=== PATIENT | female | born 1945 | race American Indian/Alaskan Native ===

== ENCOUNTER 2019-08-10 04:06 | Emergency (ER) | payer MEDICARE ==
[~2019-08-10] VITALS: Ht 167.6 cm; Wt 84.0 kg
[~2019-08-10 04:06] MED LIST: LANS30CA56 PO; METO-395 PO; ROSU10TA2 PO
[2019-08-10 04:38] LABS: CLARITY,URINE CLOUDY (Clear); COLOR,URINE YELLOW (Yellow); GLUCOSE, URINE NEGATIVE (Neg); KETONES,URINE NEGATIVE (Neg); LEUKOCYTE ESTERASE ,URINE MODERATE (Neg); NITRITES, URINE POSITIVE (Neg); OCCULT BLOOD,URINE LARGE (Neg); PH,URINE 5.5 (4.8-8.0); PROTEIN,URINE 100 mg/dl (Neg); UROBILINOGEN,URINE 0.2 E.U/dL (0.2-1.0)
[2019-08-10 04:44] LABS: UA COLLECTION TYPE VOIDED
[2019-08-10 04:45] LABS: BACTERIA,URINE FEW /HPF (Neg); SQUAMOUS EPITHELIAL CELL,UR FEW /LPF (FEW); WBC CLUMPS,URINE FEW /HPF (NEGATIVE); WBC,URINE 50-100 /HPF (0-4)
[2019-08-10] MEDS ORDERED: nitrofuran/nitrofuran macrocrysal 100 MG capsule PO ONE (05:10)
[2019-08-10] MEDS ORDERED: phenazopyridine 100mg tablet PO ONE (05:10)
[2019-08-10] MEDS ORDERED: NITR100C6 PO (05:22)
[2019-08-10] MEDS ORDERED: PHEN-716 PO (05:22)
[2019-08-10 05:27] VITALS: BP 138/89
== END 2019-08-10 05:30 | disposition home or self-care (01) ==
LOC: ER 04:07
DX: N39.0 Urinary tract infection, site not specified (principal); I48.91 Unspecified atrial fibrillation; E78.00 Pure hypercholesterolemia, unspecified; K21.9 Gastro-esophageal reflux disease without esophagitis; I50.9 Heart failure, unspecified; Z98.890 Other specified postprocedural states; Z79.899 Other long term (current) drug therapy
CPT/HCPCS: 81001; 87077; 87088; 87186; 99283

== ENCOUNTER 2020-04-27 17:46 | Emergency (ER) | payer MEDICARE ==
[~2020-04-27] VITALS: Ht 167.6 cm; Wt 79.5 kg
[~2020-04-27 17:46] MED LIST changes: +NITR100C6 PO; +PHEN-716 PO
[2020-04-27 17:55] VITALS: BP 124/78
[2020-04-27] MEDS ORDERED: DOCU100C40 PO (19:06)
[2020-04-27] MEDS ORDERED: HYDR30CR79 TOP (19:06)
[2020-04-27] MEDS ORDERED: POLY17PO10 PO (19:06)
== END 2020-04-27 19:24 | disposition home or self-care (01) ==
LOC: ER 17:48
DX: K64.4 Residual hemorrhoidal skin tags (principal); I48.91 Unspecified atrial fibrillation; E78.00 Pure hypercholesterolemia, unspecified; K21.9 Gastro-esophageal reflux disease without esophagitis; Z98.890 Other specified postprocedural states; Z72.89 Other problems related to lifestyle; Z79.899 Other long term (current) drug therapy
CPT/HCPCS: 99282

== ENCOUNTER 2020-05-30 18:46 | Emergency (ER) | payer MEDICARE ==
[~2020-05-30] VITALS: Ht 167.6 cm; Wt 84.1 kg
[~2020-05-30 18:46] MED LIST changes: +DOCU100C40 PO; +HYDR30CR79 TOP
[2020-05-30 19:12] LABS: COLOR,URINE YELLOW (Yellow); GLUCOSE, URINE NEGATIVE (Neg); KETONES,URINE NEGATIVE (Neg); LEUKOCYTE ESTERASE ,URINE NEGATIVE (Neg); NITRITES, URINE POSITIVE (Neg); OCCULT BLOOD,URINE SMALL (Neg); PROTEIN,URINE 30 mg/dl (Neg); UROBILINOGEN,URINE 0.2 E.U/dL (0.2-1.0)
[2020-05-30 19:19] LABS: UA COLLECTION TYPE CLN CATCH MIDSTREAM
[2020-05-30 19:20] LABS: BACTERIA,URINE 1+ /HPF (Neg); CLARITY,URINE SLIGHTLY CLOUDY (Clear); RBC,URINE 0-2 /HPF (0-2); SQUAMOUS EPITHELIAL CELL,UR FEW /LPF (FEW)
[2020-05-30] MEDS ORDERED: normal saline 1000ML IV soln IVB ONE (19:25)
[2020-05-30] MEDS ORDERED: ondansetron/PF 4mg/2ml inj IV ONE (19:25)
[2020-05-30 19:39] LABS: BASOPHILS % (AUTO) 0.5 % (0-1); EOSINOPHILS % (AUTO) 0.4 % (0-6); HEMOGLOBIN 14.8 g/dl (12.0-16.0); LYMPHOCYTES # (AUTO) 1.9 X10'3 (1.1-4.8); LYMPHOCYTES % (AUTO) 20.2 % (21-51); MEAN CORPUSCULAR HEMOGLOBIN 31.1 PG (27.0-31.0); MEAN CORPUSCULAR HGB CONC 33.6 g/dL (33.0-36.5); MEAN CORPUSCULAR VOLUME 92.6 FL (78-98); MEAN PLATELET VOLUME 8.7 FL (7.4-10.4); MONOCYTES # (AUTO) 0.8 X10'3 (0-0.9); MONOCYTES % (AUTO) 8.8 % (2-12); NEUTROPHILS # (AUTO) 6.6 X10'3 (1.8-7.7); NEUTROPHILS % (AUTO) 70.1 % (42-75); PLATELET COUNT 277 X10'3 (140-440); RED BLOOD COUNT 4.75 X10'6 (4.20-5.60); RED CELL DISTRIBUTION WIDTH 13.1 % (11.5-14.5); WHITE BLOOD COUNT 9.4 X10'3 (4.5-11.0)
[2020-05-30 20:03] LABS: ALANINE AMINOTRANSFERASE 27 U/L (12-78); ALBUMIN 4.4 G/DL (3.4-5.0); ALBUMIN/GLOBULIN RATIO 0.9 (1.1-1.5); ALKALINE PHOSPHATASE 112 IU/L (46-116); ANION GAP 8 (8-16); ASPARTATE AMINO TRANSFERASE 23 U/L (10-37); BILIRUBIN,TOTAL 0.7 MG/DL (0.1-1.0); BLOOD UREA NITROGEN 16 MG/DL (7-18); BUN/CREATININE RATIO 14.8 (6.6-38.0); CALCIUM 10.2 MG/DL (8.5-10.1); CHLORIDE 104 MMOL/L (99-107); CREATININE 1.08 MG/DL (0.40-0.90); GLUCOSE 161 MG/DL (70-104); LIPASE 106 U/L (73-393); POTASSIUM 4.4 MMOL/L (3.5-5.1); SODIUM 140 MMOL/L (135-145); TOTAL CARBON DIOXIDE 27.6 MMOL/L (24-32); TOTAL PROTEIN 9.1 G/DL (6.4-8.2); eGFR 50 ML/MIN
[2020-05-30] MEDS ORDERED: CEPH250T PO (20:12)
[2020-05-30] MEDS ORDERED: ONDA4TAB6 PO (20:12)
[2020-05-30 20:34] VITALS: BP 149/102
[2020-05-31] MEDS ORDERED: CHOL500050 PO (11:24)
[2020-05-31] MEDS ORDERED: OMEP-50 PO (11:24)
[2020-05-31] MEDS ORDERED: METO-384 PO (11:24)
[2020-05-31] MEDS ORDERED: RIVA20TA PO (11:24)
[2020-05-31] MEDS ORDERED: ASPI-611 PO (11:24)
[2020-05-31] MEDS ORDERED: ROSU10TA28 PO (11:24)
[2020-05-31] MEDS ORDERED: LORA-660 PO (11:24)
== END 2020-05-30 20:36 | disposition home or self-care (01) ==
LOC: ER 18:48
DX: N39.0 Urinary tract infection, site not specified (principal); R10.32 Left lower quadrant pain; I48.91 Unspecified atrial fibrillation; R19.7 Diarrhea, unspecified; E78.00 Pure hypercholesterolemia, unspecified; K21.9 Gastro-esophageal reflux disease without esophagitis; F17.200 Nicotine dependence, unspecified, uncomplicated; Z90.710 Acquired absence of both cervix and uterus; Z98.890 Other specified postprocedural states; Z72.89 Other problems related to lifestyle; Z79.899 Other long term (current) drug therapy
CPT/HCPCS: 36415; 74176; 80053; 81001; 83690; 85025; 87077; 87088; 87186; 96361; 96374; 99284; J2405; J7030

== ENCOUNTER 2020-05-31 05:34 | Inpatient (IN) | payer MEDICARE ==
[~2020-05-31] VITALS: Ht 167.6 cm; Wt 84.1 kg
[~2020-05-31 05:34] MED LIST changes: +CEPH250T PO; +ONDA4TAB6 PO
[2020-05-31] MEDS ORDERED: normal saline 1000ML IV soln IVB ONE (06:05)
[2020-05-31] MEDS ORDERED: ondansetron/PF 4mg/2ml inj IV ONE (06:05)
[2020-05-31] MEDS: diatr meglu/diatrizoate 30ml oral sol.-(3 dose) bottle PO SCH ×3 (06:47→08:42)
[2020-05-31 06:50] LABS: BASOPHILS % (AUTO) 0.3 % (0-1); EOSINOPHILS % (AUTO) 0.2 % (0-6); HEMATOCRIT 43.5 % (35.0-45.0); HEMOGLOBIN 14.6 g/dl (12.0-16.0); LYMPHOCYTES # (AUTO) 0.9 X10'3 (1.1-4.8); LYMPHOCYTES % (AUTO) 10.4 % (21-51); MEAN CORPUSCULAR HEMOGLOBIN 30.6 PG (27.0-31.0); MEAN CORPUSCULAR HGB CONC 33.5 g/dL (33.0-36.5); MEAN CORPUSCULAR VOLUME 91.3 FL (78-98); MEAN PLATELET VOLUME 8.8 FL (7.4-10.4); MONOCYTES # (AUTO) 0.7 X10'3 (0-0.9); MONOCYTES % (AUTO) 8.1 % (2-12); NEUTROPHILS # (AUTO) 7.1 X10'3 (1.8-7.7); PLATELET COUNT 259 X10'3 (140-440); RED BLOOD COUNT 4.76 X10'6 (4.20-5.60); RED CELL DISTRIBUTION WIDTH 12.9 % (11.5-14.5); WHITE BLOOD COUNT 8.7 X10'3 (4.5-11.0)
[2020-05-31 06:58] LABS: ANION GAP 12 (8-16); BLOOD UREA NITROGEN 17 MG/DL (7-18); BUN/CREATININE RATIO 17.9 (6.6-38.0); CHLORIDE 102 MMOL/L (99-107); CREATININE 0.95 MG/DL (0.40-0.90); GLUCOSE 197 MG/DL (70-104); POTASSIUM 3.8 MMOL/L (3.5-5.1); SODIUM 141 MMOL/L (135-145); TOTAL CARBON DIOXIDE 26.6 MMOL/L (24-32)
[2020-05-31 06:59] LABS: ALANINE AMINOTRANSFERASE 25 U/L (12-78); ALBUMIN/GLOBULIN RATIO 0.9 (1.1-1.5); ALKALINE PHOSPHATASE 103 IU/L (46-116); ASPARTATE AMINO TRANSFERASE 18 U/L (10-37); CALCIUM 10.1 MG/DL (8.5-10.1); LIPASE 103 U/L (73-393); TOTAL PROTEIN 8.5 G/DL (6.4-8.2); eGFR 58 ML/MIN
[2020-05-31] MEDS ORDERED: acetaminophen 325mg tablet PO PRN ×2 (10:00)
[2020-05-31] MEDS ORDERED: acetaminophen 650mg rectal suppository RC PRN (10:00)
[2020-05-31] MEDS ORDERED: magnesium Cl slow-release 64mg tablet PO PRN (10:00)
[2020-05-31] MEDS ORDERED: metoclopramide 5 mg/ml inj IV PRN (10:00)
[2020-05-31] MEDS ORDERED: potassium CL 10mEq/100ml bag 100 ML IV PRN (10:00)
[2020-05-31] MEDS ORDERED: mag hydrox/Alum hydrox/simeth 30ml oral suspension PO PRN (10:00)
[2020-05-31] MEDS ORDERED: magnesium 4gm in 100ml NS 100 ML IV PRN (10:00)
[2020-05-31] MEDS ORDERED: magnesium hydroxide 30ml (MOM) UD suspension PO PRN (10:00)
[2020-05-31] MEDS ORDERED: bisacodyl 10mg suppository rectal RC PRN (10:00)
[2020-05-31] MEDS ORDERED: magnesium 2GM in 50ml NS 50 ML IV PRN (10:00)
[2020-05-31] MEDS ORDERED: potassium Cl 20 mEq SR tablet PO PRN ×2 (10:00)
[2020-05-31] MEDS: normal saline 1000ml 1,000 ML IV SCH ×3 (11:13→22:44)
[2020-05-31] MEDS ORDERED: ROSU10TA28 PO (11:24)
[2020-05-31] MEDS ORDERED: ASPI-611 PO (11:24)
[2020-05-31] MEDS ORDERED: METO-384 PO (11:24)
[2020-05-31] MEDS ORDERED: OMEP-50 PO (11:24)
[2020-05-31] MEDS ORDERED: CHOL500050 PO (11:24)
[2020-05-31] MEDS ORDERED: RIVA20TA PO (11:24)
[2020-05-31] MEDS ORDERED: LORA-660 PO (11:24)
[2020-05-31 11:30] VITALS: BP 113/80
[2020-05-31 11:31] LABS: PARTIAL THROMBOPLASTIN TIME 29 SECONDS (22-32)
--- NOTE | 2020-05-31 11:32 | NUR ---
RECEIVED REPORT. AWAITING PATIENT ARRIVAL TO ROOM 350A.
--- NOTE | 2020-05-31 11:54 | NUR ---
RECEIVED PATIENT TO ROOM 350A VIA GURNEY ACCOMPANIED BY LOYDA MOJICA. PATIENT IS ALERT AND ORIENTED AND C/O NAUSEA. PATIENT ABLE TO TRANSFER TO BED WITH MIN ASSIST. ORIENTED PATIENT TO ROOM AND CALL LIGHT. CALL LIGHT PLACED WITHIN PATIENT'S REACH. BED IS LOW AND LOCKED. PATIENT'S BELONGINGS WHICH WAS A PURSE IS PLACED AT PATIENT'S BEDSIDE TABLE. NG WAS NOT PLACED IN ER. WILL PLACE ORDERED.
[2020-05-31] MEDS: ondansetron/PF 4mg/2ml inj IV PRN (12:15)
--- NOTE | 2020-05-31 13:37 | NUR ---
PATIENT UNABLE TO TOLERATED NG PLACEMENT AT THIS TIME. ATTEMPTED X2. PATIENT AGREEABLE TO ANOTHER ATTEMPT AT A LATER TIME. DR TURNER AWARE. PATIENT APPEARS TO BE RESTING COMFORTABLY AT THIS TIME WITH EYES CLOSED AND RESPIRATIONS EVEN AND UNLABORED. WILL CONTINUE TO MONITOR.
[2020-05-31] MEDS: pantoprazole 40 MG vial IV SCH (14:02)
--- NOTE | 2020-05-31 16:06 | NUR ---
Patient refusing reattempt of NG placement at this time. She states she "might" be agreeable at diff time. Will continue to monitor.
--- NOTE | 2020-05-31 18:02 | NUR ---
16 INDONESIAN NG INSERTED BY LOYDA HOUGH IN RIGHT NARES, SECURED. 500ML BROWN DRAINAGE IN CANISTER. DR. DAWN NOTIFIED.
--- NOTE | 2020-05-31 18:10 | NUR ---
Patient in room [facility] 350. I have received report from Jasmeet SCALES and had the opportunity to ask questions and assume patient care.
--- NOTE | 2020-05-31 18:18 | NUR ---
Problems reprioritized. Patient report given, questions answered & plan of care reviewed with LOYDA ALVAREZ.
[2020-05-31] MEDS: Chloraseptic (Phenol) Spray 177ml MM PRN ×2 (19:16→22:40)
[2020-05-31 19:39] VITALS: BP 122/85
--- NOTE | 2020-05-31 19:58 | NUR ---
pATIENT REQUESTeD CHlOROSEPTIC SPRAY AT CHANGE OF SHIFT. nOW HAS PRN ORDER FOR THROAT HURTING SINCE ng TUBE. Pt. asking "what are we doing for her UTI"? Pt. came it our ER on 05/30 with abd pain. Patient diagnosed with UTI and sent home with prescription for keflex 250 PO q6h. Patient did not fill. Pt. now here again with abd pain and diagnoses of SBO. Called MD about the UA and positive gram rods. New order for rocephin 1 gm iv now, and then to follow up tomorrow with MD. Addendum: 05/31/20 at 2002 by Sana Camacho RN It is GRAM NEGATIVE RODS, not positive. aware.
[2020-05-31] MEDS: K and/or MAG REPLACEMENT MC SCH (20:00)
[2020-05-31] MEDS ORDERED: CefTRIAXone/D5W-Rocephin 1gm 50 ML IV ONE (20:05)
[2020-05-31] MEDS ORDERED: temazepam 15mg capsule PO PRN (21:00)
[2020-05-31] MEDS ORDERED: diatr meglu/diatrizoate 30ml oral sol.-(3 dose) bottle PO SCH (21:00)
[2020-05-31] MEDS: HYDROmorphone inj. 0.5 MG/0.5 ML DISP.SYRIN IV PRN (22:49)
[2020-06-01] VITALS (20 sets, daily range): BP systolic 102–166; BP diastolic 52–110
[2020-06-01] MEDS: Chloraseptic (Phenol) Spray 177ml MM PRN ×2 (02:28→07:40)
[2020-06-01 05:26] LABS: BASOPHILS % (AUTO) 0.3 % (0-1); EOSINOPHILS % (AUTO) 0.3 % (0-6); HEMATOCRIT 37.9 % (35.0-45.0); HEMOGLOBIN 12.8 g/dl (12.0-16.0); LYMPHOCYTES # (AUTO) 1.5 X10'3 (1.1-4.8); LYMPHOCYTES % (AUTO) 27.6 % (21-51); MEAN CORPUSCULAR HEMOGLOBIN 31.2 PG (27.0-31.0); MEAN CORPUSCULAR HGB CONC 33.9 g/dL (33.0-36.5); MEAN CORPUSCULAR VOLUME 92.1 FL (78-98); MEAN PLATELET VOLUME 8.6 FL (7.4-10.4); MONOCYTES % (AUTO) 18.4 % (2-12); NEUTROPHILS # (AUTO) 2.9 X10'3 (1.8-7.7); NEUTROPHILS % (AUTO) 53.4 % (42-75); PLATELET COUNT 213 X10'3 (140-440); RED BLOOD COUNT 4.12 X10'6 (4.20-5.60); RED CELL DISTRIBUTION WIDTH 13.2 % (11.5-14.5); WHITE BLOOD COUNT 5.4 X10'3 (4.5-11.0)
[2020-06-01 05:43] LABS: ALANINE AMINOTRANSFERASE 17 U/L (12-78); ALBUMIN 3.4 G/DL (3.4-5.0); ALBUMIN/GLOBULIN RATIO 0.8 (1.1-1.5); ALKALINE PHOSPHATASE 74 IU/L (46-116); ANION GAP 10 (8-16); ASPARTATE AMINO TRANSFERASE 15 U/L (10-37); BILIRUBIN,TOTAL 0.8 MG/DL (0.1-1.0); BLOOD UREA NITROGEN 18 MG/DL (7-18); CALCIUM 9.2 MG/DL (8.5-10.1); CHLORIDE 104 MMOL/L (99-107); CREATININE 0.82 MG/DL (0.40-0.90); GLUCOSE 116 MG/DL (70-104); MAGNESIUM 1.7 MG/DL (1.5-2.4); SODIUM 141 MMOL/L (135-145); TOTAL CARBON DIOXIDE 26.6 MMOL/L (24-32); TOTAL PROTEIN 7.5 G/DL (6.4-8.2); eGFR 68 ML/MIN
[2020-06-01] MEDS: potassium CL 10mEq/100ml bag 100 ML IV PRN ×6 (05:58→22:25)
--- NOTE | 2020-06-01 06:55 | NUR ---
Patient in room [facility] 350. I have received report from Sana SCALES and had the opportunity to ask questions and assume patient care.
--- NOTE | 2020-06-01 06:59 | NUR ---
Problems reprioritized. Patient report given, questions answered & plan of care reviewed with Rafi SCALES.
[2020-06-01] MEDS: pantoprazole 40 MG vial IV SCH (07:40)
[2020-06-01 07:44] LABS: PLATELET ESTIMATE NORMAL; TOTAL CELLS COUNTED 100
[2020-06-01] MEDS: K and/or MAG REPLACEMENT MC SCH ×2 (08:00→20:00)
[2020-06-01] MEDS: normal saline 1000ml 1,000 ML IV SCH (09:40)
[2020-06-01] MEDS: HYDROmorphone inj. 0.5 MG/0.5 ML DISP.SYRIN IV PRN (13:09)
[2020-06-01] MEDS ORDERED: famotidine/PF 10 mg/ml inj IV ONE (16:00)
--- NOTE | 2020-06-01 16:26 | NUR ---
Patient just left the room, went to OR
[2020-06-01] MEDS ORDERED: sevoflurane 250ml liquid IH ONE (16:34)
[2020-06-01] MEDS ORDERED: midazolam 2 mg/2 ml injection ONE (16:34)
--- NOTE | 2020-06-01 16:34 | NUR ---
Patient's new IVF order NS with 20 mEq KCL was not available to start. The IVF just delivered and patient already in the OR at this time
[2020-06-01] MEDS ORDERED: propofol inj 20 ML IV ONE (16:35)
[2020-06-01] MEDS ORDERED: fentaNYL /PF 50mcg/ml 5ml ampule ONE (16:35)
[2020-06-01] MEDS ORDERED: rocuronium 10mg/ml inj IV ONE (16:35)
[2020-06-01] MEDS ORDERED: ceFOXitin 2GM-NS 50mL ADDVANT. 50 ML IV ONE (17:05)
[2020-06-01] MEDS ORDERED: BUPIVAcaine/PF 2.5mg/ml (0.25%) 10ml vial ONE (17:22)
[2020-06-01] MEDS ORDERED: BUPIVAcaine/PF 2.5 mg/ml (0.25%) 30ml vial ONE (17:22)
[2020-06-01] MEDS ORDERED: sugammadex 200mg/2ml injection IV ONE (17:23)
[2020-06-01] MEDS ORDERED: BUPIVACAINE liposomal/PF 13.3 MG/ML vial IM ONE (17:23)
--- NOTE | 2020-06-01 17:46 | NUR ---
RECEIVED FROM OR VIA BED ACCOMPANIED BY ANESTHESIOLOGIST DR MAN, REPORT GIVEN. 18 GAUGE PIV L WRIST PATENT AND RUNNING LR AT 100 ML/HR. 20 GAUGE PIV SL L AC. PT DROWSY BUT AWAKENS WITH NO COMPLAINT OF PAIN. LG ISLAND DRESSING MIDLINE ABD WITH SCANT SS DRAINAGE NOTED. F/C DRAINING CLEAR YELLOW FLUID. N/G TO R NARES TO LOW INTERMITTENT SUCTION. SKIN PINK AND WARM, ABD SOFT, GOOD CAP REFILL, RESTING COMFORTABLY.
[2020-06-01] MEDS ORDERED: hydrALAZINE 20mg/ml inj. IV PRN (17:55)
[2020-06-01] MEDS ORDERED: ondansetron/PF 4mg/2ml inj IV PRN (17:55)
[2020-06-01] MEDS ORDERED: morphine 2 MG/ML inj. syringe IV PRN (17:55)
[2020-06-01] MEDS ORDERED: meperidine/PF 25mg/ml syringe IV PRN ×2 (17:55)
[2020-06-01] MEDS ORDERED: ringers solution, lacted 1,000 ML IV SCH (17:55)
--- NOTE | 2020-06-01 17:56 | NUR ---
TRANSPORTED VIA BED ACCOMPANIED BY MYSELF, REPORT GIVEN. 18 GAUGE PIV L WRIST PATENT AND RUNNING LR AT 100 ML/HR. 20 GAUGE PIV SL L AC. PT DROWSY BUT AWAKENS WITH COMPLAINT OF PAIN AT LEVEL 5-6. LG ISLAND DRESSING MIDLINE ABD WITH SCANT SS DRAINAGE NOTED. F/C DRAINING CLEAR YELLOW FLUID. N/G TO R NARES TO LOW INTERMITTENT SUCTION. SKIN PINK AND WARM, ABD SOFT, GOOD CAP REFILL, RESTING COMFORTABLY. LEFT IN CARE OF CHAPINCITO SCALES
[2020-06-01] MEDS ORDERED: labetalol 20mg/4ml (5mg/ml) syringe IV ONE (18:01)
[2020-06-01] MEDS: labetalol 20mg/4ml (5mg/ml) syringe IV PRN ×2 (18:08→18:26)
[2020-06-01] MEDS: meperidine/PF 25mg/ml syringe IV PRN ×3 (18:09→18:34)
[2020-06-01] MEDS: morphine 4 MG/ML inj SYRINge IV PRN ×2 (18:40→19:15)
--- NOTE | 2020-06-01 18:41 | NUR ---
Problems reprioritized. Patient report given, questions answered & plan of care reviewed with Ayse SCALES.
--- NOTE | 2020-06-01 18:45 | NUR ---
Patient in room [facility] 350. I have received report from ARSALAN SCALES and had the opportunity to ask questions and assume patient care.
[2020-06-01] MEDS: Potassium Cl inj 20 MEQ in normal saline 1000ml 990 ML IV SCH (19:10)
[2020-06-01] MEDS: ondansetron/PF 4mg/2ml inj IV PRN (21:04)
[2020-06-01] MEDS: HYDROmorphone 1 mg/ml syringe IV PRN (21:07)
[2020-06-02] VITALS: BP 143/83
[2020-06-02] MEDS: piperacillin/tazo 3.375gm/50ml 50 ML IV SCH ×3 (00:22→16:54)
[2020-06-02] MEDS: potassium CL 10mEq/100ml bag 100 ML IV PRN (00:37)
[2020-06-02] MEDS: Potassium Cl inj 20 MEQ in normal saline 1000ml 990 ML IV SCH ×3 (03:42→22:50)
[2020-06-02] MEDS: HYDROmorphone 1 mg/ml syringe IV PRN (03:53)
[2020-06-02] MEDS: ondansetron/PF 4mg/2ml inj IV PRN (03:58)
[2020-06-02 04:00] VITALS: BP 153/90
[2020-06-02 05:06] LABS: BASOPHILS % (AUTO) 0.2 % (0-1); EOSINOPHILS % (AUTO) 0 % (0-6); HEMATOCRIT 38.6 % (35.0-45.0); HEMOGLOBIN 12.8 g/dl (12.0-16.0); LYMPHOCYTES # (AUTO) 0.8 X10'3 (1.1-4.8); LYMPHOCYTES % (AUTO) 11.9 % (21-51); MEAN CORPUSCULAR HEMOGLOBIN 30.8 PG (27.0-31.0); MEAN CORPUSCULAR HGB CONC 33.2 g/dL (33.0-36.5); MEAN CORPUSCULAR VOLUME 92.8 FL (78-98); MEAN PLATELET VOLUME 8.4 FL (7.4-10.4); MONOCYTES % (AUTO) 14.7 % (2-12); NEUTROPHILS # (AUTO) 4.8 X10'3 (1.8-7.7); NEUTROPHILS % (AUTO) 73.2 % (42-75); PLATELET COUNT 191 X10'3 (140-440); RED BLOOD COUNT 4.16 X10'6 (4.20-5.60); RED CELL DISTRIBUTION WIDTH 13.2 % (11.5-14.5); WHITE BLOOD COUNT 6.5 X10'3 (4.5-11.0)
[2020-06-02 05:31] LABS: ALANINE AMINOTRANSFERASE 16 U/L (12-78); ALBUMIN/GLOBULIN RATIO 0.8 (1.1-1.5); ALKALINE PHOSPHATASE 61 IU/L (46-116); ANION GAP 10 (8-16); ASPARTATE AMINO TRANSFERASE 18 U/L (10-37); BILIRUBIN,TOTAL 0.9 MG/DL (0.1-1.0); BLOOD UREA NITROGEN 16 MG/DL (7-18); BUN/CREATININE RATIO 21.9 (6.6-38.0); CALCIUM 8.7 MG/DL (8.5-10.1); CHLORIDE 106 MMOL/L (99-107); CREATININE 0.73 MG/DL (0.40-0.90); GLUCOSE 167 MG/DL (70-104); MAGNESIUM 1.5 MG/DL (1.5-2.4); POTASSIUM 4.1 MMOL/L (3.5-5.1); SODIUM 139 MMOL/L (135-145); TOTAL CARBON DIOXIDE 22.8 MMOL/L (24-32); eGFR 78 ML/MIN
--- NOTE | 2020-06-02 06:31 | NUR ---
Problems reprioritized. Patient report given, questions answered & plan of care reviewed with BERNICE SCALES.
--- NOTE | 2020-06-02 06:36 | NUR ---
Patient in room [facility] 350. I have received report from Lilly Carr RN and had the opportunity to ask questions and assume patient care.
--- NOTE | 2020-06-02 06:50 | NUR ---
Problems reprioritized. Patient report given, questions answered & plan of care reviewed with LOYDA Zazueta.
[2020-06-02 07:00] VITALS: BP 145/75
[2020-06-02] MEDS: K and/or MAG REPLACEMENT MC SCH ×2 (08:00→20:00)
[2020-06-02] MEDS: pantoprazole 40 MG vial IV SCH (09:16)
--- NOTE | 2020-06-02 09:18 | NUR ---
Dr. Quezada rounded to see pt. New orders received.
[2020-06-02 12:00] VITALS: BP 124/82
[2020-06-02] MEDS: HYDROcodone/acetaminophen 10/325mg tab PO PRN ×3 (12:56→21:03)
[2020-06-02] MEDS: enoxaparin 40mg/0.4ml syringe SUBCUT SCH (12:58)
--- NOTE | 2020-06-02 13:14 | NUR ---
pT. VOIDED 120ML. POST VOID RESIDUAL SEEN ON BLADDER SCAN 70 ML. PT ENCOURAGED TO AMBULATE AND IS WILLING WITH ASSISTANCE.
[2020-06-02 18:00] VITALS: BP 111/71
--- NOTE | 2020-06-02 18:00 | NUR ---
Patient in room [facility] 350. I have received report from Carlita SCALES and had the opportunity to ask questions and assume patient care.
--- NOTE | 2020-06-02 18:30 | NUR ---
Gave report to Nancy SCALES.
[2020-06-03] VITALS: BP 93/63
[2020-06-03] MEDS: piperacillin/tazo 3.375gm/50ml 50 ML IV SCH ×4 (02:54→23:59)
[2020-06-03] MEDS: HYDROcodone/acetaminophen 10/325mg tab PO PRN ×2 (02:58→08:22)
[2020-06-03 06:08] LABS: BASOPHILS % (AUTO) 0.3 % (0-1); EOSINOPHILS % (AUTO) 0.4 % (0-6); HEMATOCRIT 32.6 % (35.0-45.0); LYMPHOCYTES # (AUTO) 1.1 X10'3 (1.1-4.8); LYMPHOCYTES % (AUTO) 12.4 % (21-51); MEAN CORPUSCULAR HEMOGLOBIN 31.6 PG (27.0-31.0); MEAN CORPUSCULAR HGB CONC 33.7 g/dL (33.0-36.5); MEAN CORPUSCULAR VOLUME 93.6 FL (78-98); MEAN PLATELET VOLUME 8.7 FL (7.4-10.4); MONOCYTES # (AUTO) 1.1 X10'3 (0-0.9); MONOCYTES % (AUTO) 12.8 % (2-12); NEUTROPHILS # (AUTO) 6.5 X10'3 (1.8-7.7); NEUTROPHILS % (AUTO) 74.1 % (42-75); PLATELET COUNT 167 X10'3 (140-440); RED BLOOD COUNT 3.48 X10'6 (4.20-5.60); WHITE BLOOD COUNT 8.8 X10'3 (4.5-11.0)
[2020-06-03 06:24] LABS: ALANINE AMINOTRANSFERASE 16 U/L (12-78); ALBUMIN 2.5 G/DL (3.4-5.0); ALBUMIN/GLOBULIN RATIO 0.7 (1.1-1.5); ALKALINE PHOSPHATASE 56 IU/L (46-116); ANION GAP 10 (8-16); ASPARTATE AMINO TRANSFERASE 20 U/L (10-37); BLOOD UREA NITROGEN 11 MG/DL (7-18); BUN/CREATININE RATIO 15.3 (6.6-38.0); CALCIUM 8.1 MG/DL (8.5-10.1); CHLORIDE 108 MMOL/L (99-107); CREATININE 0.72 MG/DL (0.40-0.90); GLUCOSE 116 MG/DL (70-104); MAGNESIUM 1.5 MG/DL (1.5-2.4); POTASSIUM 3.5 MMOL/L (3.5-5.1); SODIUM 140 MMOL/L (135-145); TOTAL CARBON DIOXIDE 22.5 MMOL/L (24-32); TOTAL PROTEIN 6.2 G/DL (6.4-8.2); eGFR 79 ML/MIN
--- NOTE | 2020-06-03 06:27 | NUR ---
Problems reprioritized. Patient report given, questions answered & plan of care reviewed with Carlita SCALES.
[2020-06-03 07:00] VITALS: BP 130/89
[2020-06-03] MEDS: Potassium Cl inj 20 MEQ in normal saline 1000ml 990 ML IV SCH (07:05)
[2020-06-03] MEDS: enoxaparin 40mg/0.4ml syringe SUBCUT SCH (07:59)
[2020-06-03] MEDS: pantoprazole 40 MG vial IV SCH (08:00)
[2020-06-03] MEDS: K and/or MAG REPLACEMENT MC SCH ×2 (08:00→19:12)
[2020-06-03 11:36] VITALS: BP 134/88
[2020-06-03] MEDS: HYDROcodone/acetaminophen 5mg/325mg tablet PO PRN ×3 (12:33→21:15)
[2020-06-03] MEDS ORDERED: Potassium Cl inj 20 MEQ in normal saline 1000ml 990 ML IV SCH (17:05)
[2020-06-03 18:00] VITALS: BP 114/74
--- NOTE | 2020-06-03 18:22 | NUR ---
PAGER ID: [phone] MESSAGE: Magy Merida 350A Pt. refusing fluids r/t potassium is "burning" her. Just a FYI- no need to reply. Carlita [phone]
--- NOTE | 2020-06-03 18:38 | NUR ---
Patient report given, questions answered & plan of care reviewed with Yin SCALES.
--- NOTE | 2020-06-03 18:42 | NUR ---
Patient in room [facility]ON[facility] 345. I have received report from Carlita SCALES and had the opportunity to ask questions and assume patient care.
[2020-06-03] MEDS ORDERED: potassium Cl 20 mEq SR tablet PO PRN (22:30)
[2020-06-03] MEDS: normal saline 1000ml 1,000 ML IV SCH (22:40)
[2020-06-04] VITALS: BP 127/85
--- NOTE | 2020-06-04 02:04 | NUR ---
pt refused to have maintenance fluids (potassium 20 meq in NS) hooked up because pt stated "it burned when infusing." I discussed the fluids with the pt and offered to flush her line and try to hook her back up to the fluids but the pt refused again. I called and had fluids changed to NS with PO potassium replacement if needed
[2020-06-04] MEDS: HYDROcodone/acetaminophen 5mg/325mg tablet PO PRN (02:20)
[2020-06-04 05:40] LABS: ALANINE AMINOTRANSFERASE 15 U/L (12-78); ALBUMIN 2.3 G/DL (3.4-5.0); ALBUMIN/GLOBULIN RATIO 0.6 (1.1-1.5); ALKALINE PHOSPHATASE 63 IU/L (46-116); ANION GAP 8 (8-16); ASPARTATE AMINO TRANSFERASE 20 U/L (10-37); BILIRUBIN,TOTAL 0.8 MG/DL (0.1-1.0); BLOOD UREA NITROGEN 4 MG/DL (7-18); BUN/CREATININE RATIO 5.9 (6.6-38.0); CALCIUM 8.5 MG/DL (8.5-10.1); CHLORIDE 107 MMOL/L (99-107); CREATININE 0.68 MG/DL (0.40-0.90); GLUCOSE 112 MG/DL (70-104); MAGNESIUM 1.6 MG/DL (1.5-2.4); SODIUM 140 MMOL/L (135-145); TOTAL PROTEIN 6.2 G/DL (6.4-8.2); eGFR 85 ML/MIN
--- NOTE | 2020-06-04 06:35 | NUR ---
Patient in room [facility] 350. I have received report from LOYDA Esqueda and had the opportunity to ask questions and assume patient care.
--- NOTE | 2020-06-04 06:37 | NUR ---
Problems reprioritized. Patient report given, questions answered & plan of care reviewed with Leno RN.
[2020-06-04] MEDS: K and/or MAG REPLACEMENT MC SCH ×2 (07:25→21:07)
[2020-06-04] MEDS: piperacillin/tazo 3.375gm/50ml 50 ML IV SCH ×2 (07:28→16:33)
[2020-06-04] MEDS: pantoprazole 40 MG vial IV SCH (07:28)
[2020-06-04] MEDS: potassium Cl 20 mEq SR tablet PO PRN ×3 (07:29→16:39)
[2020-06-04] MEDS: enoxaparin 40mg/0.4ml syringe SUBCUT SCH (07:29)
[2020-06-04 07:46] VITALS: BP 128/81
[2020-06-04 08:15] LABS: BASOPHILS % (AUTO) 0.4 % (0-1); EOSINOPHILS # (AUTO) 0.2 X10'3 (0-0.9); EOSINOPHILS % (AUTO) 2.4 % (0-6); HEMATOCRIT 33.9 % (35.0-45.0); HEMOGLOBIN 11.3 g/dl (12.0-16.0); LYMPHOCYTES # (AUTO) 1.7 X10'3 (1.1-4.8); LYMPHOCYTES % (AUTO) 18.7 % (21-51); MEAN CORPUSCULAR HGB CONC 33.3 g/dL (33.0-36.5); MEAN CORPUSCULAR VOLUME 93.1 FL (78-98); MEAN PLATELET VOLUME 8.4 FL (7.4-10.4); MONOCYTES % (AUTO) 10.9 % (2-12); NEUTROPHILS # (AUTO) 6.3 X10'3 (1.8-7.7); NEUTROPHILS % (AUTO) 67.6 % (42-75); PLATELET COUNT 180 X10'3 (140-440); RED BLOOD COUNT 3.64 X10'6 (4.20-5.60); WHITE BLOOD COUNT 9.3 X10'3 (4.5-11.0)
[2020-06-04] MEDS: HYDROcodone/acetaminophen 10/325mg tab PO PRN ×3 (09:22→21:09)
[2020-06-04 11:00] VITALS: BP 134/84
[2020-06-04] MEDS: normal saline 1000ml 1,000 ML IV SCH (15:05)
[2020-06-04 19:30] VITALS: BP 117/76
[2020-06-04] MEDS: lactobacillus rhamnosus 10,000 MMU CELLS/CAPSULE PO SCH (21:07)
[2020-06-05] VITALS: BP 137/87
[2020-06-05] MEDS: piperacillin/tazo 3.375gm/50ml 50 ML IV SCH ×2 (00:14→07:33)
[2020-06-05] MEDS: HYDROcodone/acetaminophen 10/325mg tab PO PRN ×2 (04:57→11:38)
[2020-06-05 06:50] LABS: ALANINE AMINOTRANSFERASE 15 U/L (12-78); ALBUMIN 2.4 G/DL (3.4-5.0); ALBUMIN/GLOBULIN RATIO 0.5 (1.1-1.5); ALKALINE PHOSPHATASE 69 IU/L (46-116); ANION GAP 10 (8-16); ASPARTATE AMINO TRANSFERASE 24 U/L (10-37); BILIRUBIN,TOTAL 0.7 MG/DL (0.1-1.0); BLOOD UREA NITROGEN 7 MG/DL (7-18); BUN/CREATININE RATIO 10.8 (6.6-38.0); CALCIUM 9.3 MG/DL (8.5-10.1); CHLORIDE 106 MMOL/L (99-107); CREATININE 0.65 MG/DL (0.40-0.90); GLUCOSE 102 MG/DL (70-104); MAGNESIUM 1.5 MG/DL (1.5-2.4); SODIUM 138 MMOL/L (135-145); TOTAL CARBON DIOXIDE 21.8 MMOL/L (24-32); TOTAL PROTEIN 7.1 G/DL (6.4-8.2); eGFR 89 ML/MIN
[2020-06-05 07:25] VITALS: BP 133/99
[2020-06-05] MEDS: lactobacillus rhamnosus 10,000 MMU CELLS/CAPSULE PO SCH (07:34)
[2020-06-05] MEDS: pantoprazole 40 MG vial IV SCH (07:34)
[2020-06-05] MEDS: enoxaparin 40mg/0.4ml syringe SUBCUT SCH (07:41)
[2020-06-05] MEDS: K and/or MAG REPLACEMENT MC SCH (08:00)
[2020-06-05 08:26] LABS: BASOPHILS % (AUTO) 0.4 % (0-1); EOSINOPHILS # (AUTO) 0.2 X10'3 (0-0.9); EOSINOPHILS % (AUTO) 3.1 % (0-6); HEMATOCRIT 32.6 % (35.0-45.0); HEMOGLOBIN 10.8 g/dl (12.0-16.0); LYMPHOCYTES # (AUTO) 1.4 X10'3 (1.1-4.8); LYMPHOCYTES % (AUTO) 19.4 % (21-51); MEAN CORPUSCULAR HEMOGLOBIN 30.6 PG (27.0-31.0); MEAN CORPUSCULAR HGB CONC 33.1 g/dL (33.0-36.5); MEAN CORPUSCULAR VOLUME 92.6 FL (78-98); MEAN PLATELET VOLUME 8.3 FL (7.4-10.4); MONOCYTES # (AUTO) 0.8 X10'3 (0-0.9); MONOCYTES % (AUTO) 11.6 % (2-12); NEUTROPHILS # (AUTO) 4.6 X10'3 (1.8-7.7); NEUTROPHILS % (AUTO) 65.5 % (42-75); PLATELET COUNT 204 X10'3 (140-440); RED BLOOD COUNT 3.52 X10'6 (4.20-5.60); RED CELL DISTRIBUTION WIDTH 13.4 % (11.5-14.5)
--- NOTE | 2020-06-05 09:43 | NUR ---
Rounded with Dr Quezada: he is ok for hospitalist to DC patients. Dr Quezada ok to continue home medications and start patient back on her Xerelto. Dr Quezada instructed patient to not eat any gas producing foods/ roughage ie. salads and beans for the next 24 hours mainly stick to soup and sandwiches. He would like her to follow up in his office next week. Dr Quezada informed patient ok to shower and keep dressing open to air after shower. Patient verbalized instructions and primary RN Angelina is aware.
[2020-06-05] MEDS ORDERED: DOCU-148 PO (11:23)
[2020-06-05 11:40] VITALS: BP 131/93
--- NOTE | 2020-06-05 12:49 | NUR ---
Educated and reinforced patient discharge instructions. Patient states understanding that she is to resume Xarelto tonight 06/05. Patient also understands she is not to eat anything "rough" such as salad, beans, nuts but is to eat soft foods such as sandwiches and soups. Patient states she is going to make an appointment with Dr. Quezada and her primary care physician today for one week from today. Patient taken down for discharge via wheelchair with all belongings sent with her. Patient states she plans on stopping by her pharmacy first to excelsior picker her discharge medication.
--- NOTE | 2020-06-06 11:45 | NUR ---
Case Management DC follow up: spoke to pt via telephone. s/p: SBO, vertical midline incision/no enterotomy. Reports: "doing good,sore, surg site healing nice" surg site CDI. Denies: acute/continuous CP, emergent SOB, resp distress, N/V, GODINEZ, blurry vision, vertigo, syncope episodes, weakness,emergent general pain, abd tenderness/distension/above what is expected from surgery, bladder pain, dysuria, polyuria, hematuria, retention, constipation, diarrhea, fever, unexplained bleeding, bruising. Verbalizes understanding of s/s that warrant 9-11/ER visit for further evaluation. Verbalizes understanding of new Rx: colace, needing less of a dose, having regular, soft stools, not as much diarrhea. Understands why prescribed, resumes current Rx, taking as ordered, no ase r/t polypharmacy. Pt "still working on it" re Pain medications. pt family member received script, working on filling. Acknowledges need to schedule/keep follow up appts w/ PCP/Ayanna Boudreaux, pt will call to schedule. Dr Quezada 06/09/20. Verbalizes compliance w/DC aftercare. Needs met, questions answered at DC, no further questions or concerns at this time.
[2020-06-06] MEDS ORDERED: HYDR-3964 PO (19:12)
[2020-06-06] MEDS ORDERED: PROC25SU31 RC ×2 (21:37→21:57)
== END 2020-06-05 12:38 | disposition home or self-care (01) | DRG 336 ==
LOC: ER 05:34 → ED HOLD 09:58 → SUR 3N 11:46
PROVIDERS: ADMIT Family Medicine; ATTEND Internal Medicine
PROC: 0DN80ZZ Release Small Intestine, Open Approach (ICD-10-PCS; principal; 2020-06-02)
DX: K56.50 Intestinal adhesions [bands], unspecified as to partial versus complete obstruction (principal); N17.9 Acute kidney failure, unspecified; E78.00 Pure hypercholesterolemia, unspecified; Z90.710 Acquired absence of both cervix and uterus; K21.9 Gastro-esophageal reflux disease without esophagitis; Z80.49 Family history of malignant neoplasm of other genital organs; I50.9 Heart failure, unspecified; I48.91 Unspecified atrial fibrillation; I11.0 Hypertensive heart disease with heart failure; E78.5 Hyperlipidemia, unspecified; F17.200 Nicotine dependence, unspecified, uncomplicated
CPT/HCPCS: 36415; 71045; 74177; 80053; 83690; 83735; 84132; 85025; 85610; 85730; 87081; 93005; 94668; 96361; 96374; 97110; 97116; 97161; 97530; 99285; A4618; A6258; A7000; C1758; C9113; C9290; C9399; G0378; J0694; J0696; J1170; J1650; J2175; J2250; J2270; J2405; J2543; J2704; J2765; J3010; J3480; J3490; J7030; J7120; Q9963

== ENCOUNTER 2020-06-06 18:34 | Emergency (ER) | payer MEDICARE ==
[~2020-06-06] VITALS: Ht 167.6 cm; Wt 84.1 kg
[~2020-06-06 18:34] MED LIST changes: +ASPI-611 PO; -CEPH250T PO; +CHOL500050 PO; +DOCU-148 PO; -DOCU100C40 PO; -HYDR30CR79 TOP; -LANS30CA56 PO; +LORA-660 PO; +METO-384 PO; -METO-395 PO; -NITR100C6 PO; +OMEP-50 PO; -ONDA4TAB6 PO; -PHEN-716 PO; +RIVA20TA PO; -ROSU10TA2 PO; +ROSU10TA28 PO
[2020-06-06 18:57] LABS: BASOPHILS % (AUTO) 0.5 % (0-1); EOSINOPHILS # (AUTO) 0.2 X10'3 (0-0.9); EOSINOPHILS % (AUTO) 2.2 % (0-6); HEMATOCRIT 33.5 % (35.0-45.0); HEMOGLOBIN 11.2 g/dl (12.0-16.0); LYMPHOCYTES # (AUTO) 1.4 X10'3 (1.1-4.8); MEAN CORPUSCULAR HGB CONC 33.4 g/dL (33.0-36.5); MEAN CORPUSCULAR VOLUME 92.8 FL (78-98); MEAN PLATELET VOLUME 7.9 FL (7.4-10.4); MONOCYTES # (AUTO) 0.6 X10'3 (0-0.9); MONOCYTES % (AUTO) 7.2 % (2-12); NEUTROPHILS # (AUTO) 6.3 X10'3 (1.8-7.7); NEUTROPHILS % (AUTO) 74.1 % (42-75); PLATELET COUNT 248 X10'3 (140-440); RED BLOOD COUNT 3.62 X10'6 (4.20-5.60); RED CELL DISTRIBUTION WIDTH 13.4 % (11.5-14.5); WHITE BLOOD COUNT 8.5 X10'3 (4.5-11.0)
[2020-06-06] MEDS ORDERED: HYDR-3964 PO (19:12)
[2020-06-06 19:23] LABS: CLARITY,URINE CLEAR (Clear); COLOR,URINE YELLOW (Yellow); GLUCOSE, URINE NEGATIVE (Neg); KETONES,URINE NEGATIVE (Neg); LEUKOCYTE ESTERASE ,URINE NEGATIVE (Neg); NITRITES, URINE NEGATIVE (Neg); OCCULT BLOOD,URINE TRACE-INTACT (Neg); PROTEIN,URINE TRACE mg/dl (Neg); UROBILINOGEN,URINE 0.2 E.U/dL (0.2-1.0)
[2020-06-06 19:27] LABS: UA COLLECTION TYPE STRAIGHT CATH
[2020-06-06 19:31] LABS: BACTERIA,URINE FEW /HPF (Neg); MUCUS STRANDS MODERATE /LPF (Neg); RBC,URINE 0-2 /HPF (0-2); SQUAMOUS EPITHELIAL CELL,UR MODERATE /LPF (FEW); WBC,URINE 0-4 /HPF (0-4)
[2020-06-06] MEDS ORDERED: morphine 4 MG/ML inj SYRINge IV ONE (19:35)
[2020-06-06] MEDS ORDERED: pantoprazole 40 MG vial IV ONE (19:35)
[2020-06-06] MEDS ORDERED: ondansetron/PF 4mg/2ml inj IV ONE (19:35)
[2020-06-06] MEDS ORDERED: normal saline 1000ML IV soln IVB ONE (19:35)
[2020-06-06 19:37] LABS: ALANINE AMINOTRANSFERASE 22 U/L (12-78); ALBUMIN 2.6 G/DL (3.4-5.0); ALBUMIN/GLOBULIN RATIO 0.6 (1.1-1.5); ALKALINE PHOSPHATASE 74 IU/L (46-116); ANION GAP 12 (8-16); ASPARTATE AMINO TRANSFERASE 18 U/L (10-37); BILIRUBIN,TOTAL 0.6 MG/DL (0.1-1.0); BLOOD UREA NITROGEN 9 MG/DL (7-18); BUN/CREATININE RATIO 14.5 (6.6-38.0); CALCIUM 9.8 MG/DL (8.5-10.1); CHLORIDE 105 MMOL/L (99-107); CREATININE 0.62 MG/DL (0.40-0.90); GLUCOSE 140 MG/DL (70-104); LIPASE 311 U/L (73-393); POTASSIUM 3.3 MMOL/L (3.5-5.1); SODIUM 140 MMOL/L (135-145); TOTAL CARBON DIOXIDE 22.7 MMOL/L (24-32); TOTAL PROTEIN 7.1 G/DL (6.4-8.2); eGFR > 90 ML/MIN
[2020-06-06] MEDS ORDERED: PROC25SU31 RC ×2 (21:37→21:57)
[2020-06-06 21:44] VITALS: BP 141/89
== END 2020-06-06 21:57 | disposition home or self-care (01) ==
LOC: ER 18:35
DX: G89.18 Other acute postprocedural pain (principal); R10.84 Generalized abdominal pain; R19.7 Diarrhea, unspecified; R11.10 Vomiting, unspecified; I48.91 Unspecified atrial fibrillation; E78.00 Pure hypercholesterolemia, unspecified; K21.9 Gastro-esophageal reflux disease without esophagitis; F17.200 Nicotine dependence, unspecified, uncomplicated; Z90.710 Acquired absence of both cervix and uterus; Z98.890 Other specified postprocedural states; Z79.899 Other long term (current) drug therapy; Z79.82 Long term (current) use of aspirin
CPT/HCPCS: 36415; 74022; 80053; 81001; 83605; 83690; 85025; 96361; 96374; 96375; 99284; C9113; J2270; J2405; J7030

== ENCOUNTER 2020-09-06 09:06 | Inpatient (IN) | payer MEDICARE ==
[~2020-09-06] VITALS: Ht 167.6 cm; Wt 81.6 kg
[~2020-09-06 09:06] MED LIST changes: -DOCU-148 PO; +HYDR-3964 PO
[2020-09-06] MEDS ORDERED: iohexol 350MG/ML 100ml bottle IV ONE (09:26)
[2020-09-06 10:25] LABS: HEMOGLOBIN 12.6 g/dl (12.0-16.0)
[2020-09-06 10:26] LABS: BASOPHILS % (AUTO) 0.8 % (0-1); EOSINOPHILS # (AUTO) 0.1 X10'3 (0-0.9); EOSINOPHILS % (AUTO) 1.9 % (0-6); HEMATOCRIT 38.6 % (35.0-45.0); LYMPHOCYTES # (AUTO) 2.1 X10'3 (1.1-4.8); LYMPHOCYTES % (AUTO) 41.6 % (21-51); MEAN CORPUSCULAR HEMOGLOBIN 29.6 PG (27.0-31.0); MEAN CORPUSCULAR HGB CONC 32.5 g/dL (33.0-36.5); MEAN CORPUSCULAR VOLUME 91.1 FL (78-98); MEAN PLATELET VOLUME 8.4 FL (7.4-10.4); MONOCYTES # (AUTO) 0.6 X10'3 (0-0.9); MONOCYTES % (AUTO) 11.3 % (2-12); NEUTROPHILS # (AUTO) 2.2 X10'3 (1.8-7.7); NEUTROPHILS % (AUTO) 44.4 % (42-75); PLATELET COUNT 228 X10'3 (140-440); RED BLOOD COUNT 4.24 X10'6 (4.20-5.60); RED CELL DISTRIBUTION WIDTH 13.7 % (11.5-14.5); WHITE BLOOD COUNT 4.9 X10'3 (4.5-11.0)
[2020-09-06 10:30] LABS: CLARITY,URINE SLIGHTLY CLOUDY (Clear); COLOR,URINE YELLOW (Yellow); GLUCOSE, URINE NEGATIVE (Neg); KETONES,URINE NEGATIVE (Neg); LEUKOCYTE ESTERASE ,URINE SMALL (Neg); NITRITES, URINE NEGATIVE (Neg); OCCULT BLOOD,URINE TRACE-INTACT (Neg); PROTEIN,URINE NEGATIVE (Neg)
[2020-09-06 10:31] LABS: UA COLLECTION TYPE CLN CATCH MIDSTREAM
[2020-09-06] MEDS ORDERED: ringers solution, lacted 1,000 ML IV ONE (10:35)
[2020-09-06] MEDS ORDERED: meclizine 12.5mg tablet PO ONE (10:35)
[2020-09-06 10:37] LABS: BACTERIA,URINE 3+ /HPF (Neg); SQUAMOUS EPITHELIAL CELL,UR FEW /LPF (FEW)
[2020-09-06 10:38] LABS: RBC,URINE 0-2 /HPF (0-2); WBC CLUMPS,URINE FEW /HPF (NEGATIVE)
[2020-09-06 10:40] LABS: PARTIAL THROMBOPLASTIN TIME 36 SECONDS (22-32)
[2020-09-06 11:04] LABS: ALANINE AMINOTRANSFERASE 21 U/L (12-78); ALBUMIN 3.7 G/DL (3.4-5.0); ALBUMIN/GLOBULIN RATIO 0.9 (1.1-1.5); ALKALINE PHOSPHATASE 106 IU/L (46-116); ANION GAP 10 (8-16); ASPARTATE AMINO TRANSFERASE 16 U/L (10-37); BILIRUBIN,TOTAL 0.4 MG/DL (0.1-1.0); BLOOD UREA NITROGEN 20 MG/DL (7-18); BUN/CREATININE RATIO 26.3 (6.6-38.0); CALCIUM 9.1 MG/DL (8.5-10.1); CHLORIDE 102 MMOL/L (99-107); CREATININE 0.76 MG/DL (0.40-0.90); GLUCOSE 106 MG/DL (70-104); POTASSIUM 3.8 MMOL/L (3.5-5.1); SODIUM 137 MMOL/L (135-145); TOTAL CARBON DIOXIDE 24.7 MMOL/L (24-32); TOTAL PROTEIN 7.8 G/DL (6.4-8.2); eGFR 74 ML/MIN
[2020-09-06] MEDS ORDERED: CefTRIAXone/D5W-Rocephin 1gm 50 ML IV ONE ×2 (11:35→11:55)
[2020-09-06] MEDS ORDERED: aspirin 325mg tablet PO ONE (11:50)
[2020-09-06] MEDS ORDERED: magnesium 4gm in 100ml NS 100 ML IV PRN (11:55)
[2020-09-06] MEDS ORDERED: docusate sod 100mg capsule PO PRN (11:55)
[2020-09-06] MEDS ORDERED: potassium Cl 20 mEq SR tablet PO PRN ×2 (11:55)
[2020-09-06] MEDS ORDERED: acetaminophen 325mg tablet PO PRN (11:55)
[2020-09-06] MEDS ORDERED: ipratropium/albuterol 3ml nebule NEB PRN (11:55)
[2020-09-06] MEDS ORDERED: magnesium 2GM in 50ml NS 50 ML IV PRN (11:55)
[2020-09-06] MEDS ORDERED: potassium CL 10mEq/100ml bag 100 ML IV PRN ×2 (11:55)
[2020-09-06] MEDS ORDERED: mag hydrox/Alum hydrox/simeth 30ml oral suspension PO PRN (11:55)
[2020-09-06] MEDS ORDERED: ondansetron/PF 4mg/2ml inj IV PRN (11:55)
--- NOTE | 2020-09-06 12:21 | NUR ---
spoke to pt son Yaakov pt gives permission to speak to him re med condition he would like updates [phone], chevy elliott know that she is being admitted for further work up
[2020-09-06] MEDS ORDERED: GABA300C PO (13:05)
--- NOTE | 2020-09-06 14:20 | NUR ---
called son and updated on room assignment
--- NOTE | 2020-09-06 14:39 | NUR ---
Received report from LOYDA Bolanos. awaiting patient arrival.
--- NOTE | 2020-09-06 14:50 | NUR ---
patient arrived to floor. VSS. no complaints.
[2020-09-06 15:21] VITALS: BP 138/81
--- NOTE | 2020-09-06 18:10 | NUR ---
Problems reprioritized. Patient report given, questions answered & plan of care reviewed with LOYDA Sinclair.
--- NOTE | 2020-09-06 18:20 | NUR ---
Patient in room ORTHO 4023. I have received report from Sunita SCALES and had the opportunity to ask questions and assume patient care.
--- NOTE | 2020-09-06 19:02 | NUR ---
Page Sent to Dr. Calderon () PAGER ID: [phone] MESSAGE: Pt in # [phone] Magy Neal has not had med rec addressed. Thank you-Yahir #[phone]
[2020-09-06] MEDS: K and/or MAG REPLACEMENT MC SCH (20:00)
[2020-09-06] MEDS: gabapentin 300mg capsule PO SCH (20:00)
[2020-09-06] MEDS: apixaban 5mg tablet PO SCH (21:52)
[2020-09-06 22:00] VITALS: BP 149/81
[2020-09-07 02:00] VITALS: BP 129/82
--- NOTE | 2020-09-07 02:37 | NUR ---
Page Sent PAGER ID: [phone] MESSAGE: pt rm # [id number]-Magy Merida requesting advance diet to heart healthy. Pt has been swallowing fine No stroke deficits at this time-Yahir #[id number]
[2020-09-07 05:55] VITALS: BP 121/79
[2020-09-07 06:01] LABS: BASOPHILS % (AUTO) 0.9 % (0-1); EOSINOPHILS # (AUTO) 0.1 X10'3 (0-0.9); EOSINOPHILS % (AUTO) 2.7 % (0-6); HEMATOCRIT 35.9 % (35.0-45.0); LYMPHOCYTES # (AUTO) 1.8 X10'3 (1.1-4.8); LYMPHOCYTES % (AUTO) 38.7 % (21-51); MEAN CORPUSCULAR HEMOGLOBIN 30.2 PG (27.0-31.0); MEAN CORPUSCULAR HGB CONC 33.3 g/dL (33.0-36.5); MEAN CORPUSCULAR VOLUME 90.6 FL (78-98); MEAN PLATELET VOLUME 8.4 FL (7.4-10.4); MONOCYTES # (AUTO) 0.6 X10'3 (0-0.9); MONOCYTES % (AUTO) 13.3 % (2-12); NEUTROPHILS # (AUTO) 2.1 X10'3 (1.8-7.7); NEUTROPHILS % (AUTO) 44.4 % (42-75); PLATELET COUNT 212 X10'3 (140-440); RED BLOOD COUNT 3.96 X10'6 (4.20-5.60); RED CELL DISTRIBUTION WIDTH 13.7 % (11.5-14.5); WHITE BLOOD COUNT 4.6 X10'3 (4.5-11.0)
[2020-09-07 06:16] LABS: ALANINE AMINOTRANSFERASE 21 U/L (12-78); ALBUMIN 3.5 G/DL (3.4-5.0); ALBUMIN/GLOBULIN RATIO 0.9 (1.1-1.5); ANION GAP 9 (8-16); ASPARTATE AMINO TRANSFERASE 17 U/L (10-37); BILIRUBIN,TOTAL 0.5 MG/DL (0.1-1.0); BLOOD UREA NITROGEN 12 MG/DL (7-18); BUN/CREATININE RATIO 19.4 (6.6-38.0); CALCIUM 9.8 MG/DL (8.5-10.1); CHLORIDE 110 MMOL/L (99-107); CREATININE 0.62 MG/DL (0.40-0.90); GLUCOSE 90 MG/DL (70-104); POTASSIUM 4.1 MMOL/L (3.5-5.1); SODIUM 145 MMOL/L (135-145); TOTAL CARBON DIOXIDE 26.3 MMOL/L (24-32); TOTAL PROTEIN 7.3 G/DL (6.4-8.2); eGFR > 90 ML/MIN
[2020-09-07 06:17] LABS: ALKALINE PHOSPHATASE 85 IU/L (46-116); CHOL/HDL RATIO 2.4 (0.00-4.99); CHOLESTEROL 141 MG/DL (0-200); HDL CHOLESTEROL 59 MG/DL (35-60); LDL CHOLESTEROL 62 MG/DL (50-100); TRIGLYCERIDES 179 MG/DL (20-135)
--- NOTE | 2020-09-07 06:48 | NUR ---
Problems reprioritized. Patient report given, questions answered & plan of care reviewed with Taryn SCALES. .
--- NOTE | 2020-09-07 07:14 | NUR ---
Patient in room ORTHO 4023a. I have received report from Yahir SCALES and had the opportunity to ask questions and assume patient care.
[2020-09-07] MEDS ORDERED: pantoprazole 40mg Tablet.DR PO SCH (07:30)
[2020-09-07] MEDS: K and/or MAG REPLACEMENT MC SCH (07:34)
[2020-09-07] MEDS: apixaban 5mg tablet PO SCH (07:45)
[2020-09-07] MEDS ORDERED: vitamin D (cholecalciferol) 1,000 unit tablet PO SCH (08:00)
[2020-09-07] MEDS ORDERED: CefTRIAXone/D5W-Rocephin 1gm 50 ML IV SCH (08:00)
[2020-09-07] MEDS ORDERED: aspirin 81mg tablet.DR PO SCH (08:00)
[2020-09-07] MEDS ORDERED: atorvastatin 20mg tablet PO SCH (08:00)
[2020-09-07] MEDS ORDERED: loratadine 10mg tablet PO SCH (08:00)
[2020-09-07] MEDS: gabapentin 300mg capsule PO SCH (08:00)
[2020-09-07 10:00] VITALS: BP 113/79
--- NOTE | 2020-09-07 10:14 | NUR ---
PAGER ID: [phone] MESSAGE: [phone] Magy Merida Can the patient get some Ativan for the MRI? Taryn [phone]
[2020-09-07] MEDS ORDERED: LORazepam 2 mg/ml vial IV ONE (10:45)
--- NOTE | 2020-09-07 13:33 | NUR ---
Radiologist Dr. Reji Ramirez called regarding report and stated there is no "Left sided Acute stroke"
[2020-09-07] MEDS ORDERED: CEPH500C5 PO (13:51)
[2020-09-07] MEDS ORDERED: APIX5TAB3 PO (13:51)
--- NOTE | 2020-09-07 14:00 | NUR ---
Pt. educated on discharge, smoking cessation, and about TIA. 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 IV removed.
--- NOTE | 2020-09-07 14:30 | NUR ---
Pt. discharged home, picked up by
--- NOTE | 2020-09-07 17:47 | NUR ---
Student documentation: I have reviewed and agree with all interventions, assessments performed and documented by CUCA SCOTT. Student Medication Administration: For this medication-pass time frame, all medication were reviewed, dispensed, administered and documented per hospital policy by CUCA SCOTT.
== END 2020-09-07 14:53 | disposition home or self-care (01) | DRG 69 ==
LOC: ER 09:06 → ED HOLD 11:54 → ORTHO 4S 14:50
PROVIDERS: ADMIT Family Medicine; ATTEND Family Medicine
PROC: BW291ZZ Computerized Tomography (CT Scan) of Head and Neck using Low Osmolar Contrast (ICD-10-PCS; principal; 2020-09-06)
DX: G45.9 Transient cerebral ischemic attack, unspecified (principal); G93.41 Metabolic encephalopathy; I48.20 Chronic atrial fibrillation, unspecified; N39.0 Urinary tract infection, site not specified; Z90.710 Acquired absence of both cervix and uterus; E78.00 Pure hypercholesterolemia, unspecified; K21.9 Gastro-esophageal reflux disease without esophagitis; Z82.49 Family history of ischemic heart disease and other diseases of the circulatory system; Z82.5 Family history of asthma and other chronic lower respiratory diseases; Z86.73 Personal history of transient ischemic attack (TIA), and cerebral infarction without residual deficits; Z90.721 Acquired absence of ovaries, unilateral; Z83.3 Family history of diabetes mellitus; Z80.49 Family history of malignant neoplasm of other genital organs; E78.5 Hyperlipidemia, unspecified; F17.200 Nicotine dependence, unspecified, uncomplicated; I10 Essential (primary) hypertension
CPT/HCPCS: 36415; 70450; 70496; 70498; 70551; 71045; 80053; 80061; 81001; 83605; 83735; 85025; 85610; 85730; 86885; 86900; 86901; 87040; 87077; 87081; 87088; 87186; 92508; 92616; 93005; 93306; 93308; 94640; 96365; 97162; 99285; G0378; J0696; J2060; J7120; J8597; Q9967

== ENCOUNTER 2021-10-18 09:20 | Emergency (ER) | payer MEDICARE ==
[~2021-10-18] VITALS: Ht 167.6 cm; Wt 78.1 kg
[~2021-10-18 09:20] MED LIST changes: +APIX5TAB3 PO; +GABA300C PO; -HYDR-3964 PO; +LORA-657 PO; -LORA-660 PO; -RIVA20TA PO
[2021-10-18 10:01] LABS: BASOPHILS % (AUTO) 0.5 % (0-1); EOSINOPHILS % (AUTO) 0.4 % (0-6); HEMATOCRIT 38.3 % (35.0-45.0); HEMOGLOBIN 12.9 g/dl (12.0-16.0); LYMPHOCYTES # (AUTO) 1.4 X10'3 (1.1-4.8); LYMPHOCYTES % (AUTO) 15.2 % (21-51); MEAN CORPUSCULAR HEMOGLOBIN 30.4 PG (27.0-31.0); MEAN CORPUSCULAR HGB CONC 33.8 g/dL (33.0-36.5); MONOCYTES # (AUTO) 1.1 X10'3 (0-0.9); MONOCYTES % (AUTO) 11.7 % (2-12); NEUTROPHILS # (AUTO) 6.5 X10'3 (1.8-7.7); NEUTROPHILS % (AUTO) 72.2 % (42-75); PLATELET COUNT 204 X10'3 (140-440); RED BLOOD COUNT 4.26 X10'6 (4.20-5.60); RED CELL DISTRIBUTION WIDTH 13.8 % (11.5-14.5)
[2021-10-18 10:15] LABS: ALANINE AMINOTRANSFERASE 19 U/L (12-78); ALBUMIN 3.9 G/DL (3.4-5.0); ALBUMIN/GLOBULIN RATIO 0.9 (1.1-1.5); ALKALINE PHOSPHATASE 101 IU/L (46-116); ANION GAP 10 (8-16); ASPARTATE AMINO TRANSFERASE 12 U/L (10-37); BILIRUBIN,TOTAL 0.9 MG/DL (0.1-1.0); BLOOD UREA NITROGEN 15 MG/DL (7-18); BUN/CREATININE RATIO 16.9 (6.6-38.0); CALCIUM 9.8 MG/DL (8.5-10.1); CHLORIDE 103 MMOL/L (99-107); CREATININE 0.89 MG/DL (0.40-0.90); GLUCOSE 142 MG/DL (70-104); SODIUM 140 MMOL/L (135-145); TOTAL CARBON DIOXIDE 26.7 MMOL/L (24-32); TOTAL PROTEIN 8.4 G/DL (6.4-8.2); eGFR 62 ML/MIN
[2021-10-18 11:29] LABS: CLARITY,URINE CLOUDY (Clear); COLOR,URINE YELLOW (Yellow); GLUCOSE, URINE NEGATIVE (Neg); KETONES,URINE NEGATIVE (Neg); LEUKOCYTE ESTERASE ,URINE SMALL (Neg); NITRITES, URINE NEGATIVE (Neg); OCCULT BLOOD,URINE LARGE (Neg); PH,URINE 5.5 (4.8-8.0); PROTEIN,URINE NEGATIVE (Neg); UROBILINOGEN,URINE 0.2 E.U/dL (0.2-1.0)
[2021-10-18 11:40] LABS: UA COLLECTION TYPE CLN CATCH MIDSTREAM
[2021-10-18 11:50] LABS: BACTERIA,URINE 4+ /HPF (Neg); SQUAMOUS EPITHELIAL CELL,UR MODERATE /LPF (FEW)
[2021-10-18 11:53] LABS: WBC CLUMPS,URINE FEW /HPF (NEGATIVE); WBC,URINE 50-100 /HPF (0-4)
[2021-10-18 12:12] VITALS: BP 124/57
[2021-10-19] MEDS ORDERED: SULF1TAB49 PO (08:48)
--- NOTE | 2021-10-20 15:57 | NUR ---
PT CALLED IN WANTING UA RESULTS SHE LEFT PRIOR TO COMPLETION AND IS EXPERIENCING SYMPTOMS. REVIEWED WITH ROXANNA DOWNING. RX ORDERED. CALLED RX ORDERED INTO [facility]. PT ADVISED.
== END 2021-10-18 12:13 | disposition home or self-care (01) ==
LOC: ER 09:20
DX: N39.0 Urinary tract infection, site not specified (principal); M79.10 Myalgia, unspecified site; R42 Dizziness and giddiness; R53.1 Weakness; I48.91 Unspecified atrial fibrillation; E78.00 Pure hypercholesterolemia, unspecified; K21.9 Gastro-esophageal reflux disease without esophagitis; Z87.440 Personal history of urinary (tract) infections; Z90.710 Acquired absence of both cervix and uterus; Z98.890 Other specified postprocedural states; Z72.89 Other problems related to lifestyle; Z79.82 Long term (current) use of aspirin; Z79.899 Other long term (current) drug therapy
CPT/HCPCS: 36415; 80053; 81001; 85025; 87077; 87088; 87186; 99283

== ENCOUNTER 2022-12-19 09:34 | Outpatient (CLI) | payer MEDICARE ==
[~2022-12-19 09:34] MED LIST changes: -GABA300C PO; -LORA-657 PO; -OMEP-50 PO; +OMEP20CA16 PO
== END 2022-12-19 23:59 | disposition home or self-care (01) ==
LOC: CARD DIAG 09:34
PROVIDERS: ATTEND Internal Medicine Cardiovascular Disease
DX: I08.3 Combined rheumatic disorders of mitral, aortic and tricuspid valves (principal); R06.02 Shortness of breath
CPT/HCPCS: 93306

== ENCOUNTER 2023-09-04 05:53 | Day surgery (SDC) | payer MEDICARE ==
[2023-09-03 11:12] LABS: BASOPHILS # (AUTO) 0.1 X10'3 (0-0.2); BASOPHILS % (AUTO) 1.2 % (0-1); EOSINOPHILS # (AUTO) 0.1 X10'3 (0-0.9); EOSINOPHILS % (AUTO) 2.2 % (0-6); HEMATOCRIT 40.8 % (35.0-45.0); HEMOGLOBIN 13.3 g/dl (12.0-16.0); LYMPHOCYTES % (AUTO) 35.1 % (21-51); MEAN CORPUSCULAR HEMOGLOBIN 30.4 PG (27.0-31.0); MEAN CORPUSCULAR HGB CONC 32.7 g/dL (33.0-36.5); MEAN CORPUSCULAR VOLUME 92.8 FL (78-98); MEAN PLATELET VOLUME 8.3 FL (7.4-10.4); MONOCYTES # (AUTO) 0.6 X10'3 (0-0.9); MONOCYTES % (AUTO) 10.4 % (2-12); NEUTROPHILS # (AUTO) 2.9 X10'3 (1.8-7.7); NEUTROPHILS % (AUTO) 51.1 % (42-75); PLATELET COUNT 224 X10'3 (140-440); RED BLOOD COUNT 4.39 X10'6 (4.20-5.60); RED CELL DISTRIBUTION WIDTH 13.4 % (11.5-14.5); WHITE BLOOD COUNT 5.6 X10'3 (4.5-11.0)
[2023-09-03 11:21] LABS: ALBUMIN 3.9 G/DL (3.4-5.0); ANION GAP 8 (8-16); BLOOD UREA NITROGEN 16 MG/DL (7-18); CHLORIDE 104 MMOL/L (99-107); GLUCOSE 143 MG/DL (70-104); POTASSIUM 4.2 MMOL/L (3.5-5.1); SODIUM 138 MMOL/L (135-145); TOTAL CARBON DIOXIDE 25.8 MMOL/L (24-32); eGFR 70 ML/MIN
[2023-09-03 11:25] LABS: APTT 27 SECONDS (22-32); PROTHROMBIN TIME 10.4 SECONDS (9.0-12.0)
[~2023-09-04] VITALS: Ht 167.6 cm; Wt 83.3 kg
[2023-09-04] VITALS (11 sets, daily range): BP systolic 101–142; BP diastolic 65–92; PULSE 60–64; RESP 14–17; TEMP 98; O2SAT 94–98
[2023-09-04] MEDS ORDERED: CIPR250T4 PO (06:31)
[2023-09-04] MEDS ORDERED: cefazolin 2gm/D5W 100mL 100 ML IV ONE (06:40)
[2023-09-04] MEDS ORDERED: midazolam 1 mg/ML 2ml injection ONE (07:23)
[2023-09-04] MEDS ORDERED: iohexol 350 MG/ML 50ML vial IV ONE (07:23)
[2023-09-04] MEDS ORDERED: fentaNYL/PF 50MCG/1 ML 2ML syringe ONE (07:23)
[2023-09-04] MEDS ORDERED: LIDOcaine 1% (10mg/ml)w/preservative inj. 20ml MDV ONE (07:23)
[2023-09-04] MEDS ORDERED: heparin 1,000 UNITS/NS 500ml 500 ML ONE ×2 (07:31→08:19)
[2023-09-04] MEDS ORDERED: heparin 1,000unit/ml 10ml vial 10 ML ONE (08:40)
== END 2023-09-04 14:00 | disposition home or self-care (01) ==
LOC: SSTAY O 05:53
PROVIDERS: ATTEND Internal Medicine Cardiovascular Disease
DX: Z45.018 Encounter for adjustment and management of other part of cardiac pacemaker (principal); Z00.6 Encounter for examination for normal comparison and control in clinical research program; I49.5 Sick sinus syndrome; I10 Essential (primary) hypertension; E11.9 Type 2 diabetes mellitus without complications; I25.10 Atherosclerotic heart disease of native coronary artery without angina pectoris; E78.5 Hyperlipidemia, unspecified; J44.9 Chronic obstructive pulmonary disease, unspecified; I48.20 Chronic atrial fibrillation, unspecified; E66.3 Overweight; I35.1 Nonrheumatic aortic (valve) insufficiency; Z86.73 Personal history of transient ischemic attack (TIA), and cerebral infarction without residual deficits; Z87.440 Personal history of urinary (tract) infections; Z79.01 Long term (current) use of anticoagulants; Z79.82 Long term (current) use of aspirin; Z79.899 Other long term (current) drug therapy; Z90.710 Acquired absence of both cervix and uterus; Z68.29 Body mass index [BMI] 29.0-29.9, adult
CPT/HCPCS: 33210; 33274; 36415; 76937; 80048; 85025; 85610; 85730; 93005; 93308; 99152; 99153; C1769; C1786; J0690; J1644; J2250; J3010; J3490; J7030; J7040; Q9967; A6258; A6402; C1756; C1760

== ENCOUNTER 2024-01-16 09:26 | Observation (INO) | payer MEDICARE ==
[~2024-01-16] VITALS: Ht 165.1 cm; Wt 84.1 kg
[~2024-01-16 09:26] MED LIST changes: +CIPR250T4 PO
[2024-01-16] MEDS ORDERED: iohexol 350MG/ML 100ml bottle IV ONE (09:34)
[2024-01-16 09:44] LABS: BASOPHILS % (AUTO) 0.7 % (0-1); EOSINOPHILS # (AUTO) 0.1 X10'3 (0-0.9); EOSINOPHILS % (AUTO) 2.3 % (0-6); HEMATOCRIT 39.2 % (35.0-45.0); HEMOGLOBIN 13.1 g/dl (12.0-16.0); LYMPHOCYTES # (AUTO) 2.6 X10'3 (1.1-4.8); MEAN CORPUSCULAR HEMOGLOBIN 30.6 PG (27.0-31.0); MEAN CORPUSCULAR HGB CONC 33.4 g/dL (33.0-36.5); MEAN CORPUSCULAR VOLUME 91.5 FL (78-98); MEAN PLATELET VOLUME 8.4 FL (7.4-10.4); MONOCYTES # (AUTO) 0.7 X10'3 (0-0.9); MONOCYTES % (AUTO) 11.3 % (2-12); NEUTROPHILS # (AUTO) 2.7 X10'3 (1.8-7.7); NEUTROPHILS % (AUTO) 43.7 % (42-75); PLATELET COUNT 243 X10'3 (140-440); RED BLOOD COUNT 4.28 X10'6 (4.20-5.60); RED CELL DISTRIBUTION WIDTH 13.7 % (11.5-14.5); WHITE BLOOD COUNT 6.1 X10'3 (4.5-11.0)
[2024-01-16 10:00] LABS: APTT 29 SECONDS (22-32); PROTHROMBIN TIME 10.6 SECONDS (9.0-12.0)
[2024-01-16 10:04] LABS: ANION GAP 11 (8-16); BLOOD UREA NITROGEN 10 MG/DL (7-18); BUN/CREATININE RATIO 14.5 (10.0-20.0); CALCIUM 9.7 MG/DL (8.5-10.1); CHLORIDE 108 MMOL/L (99-107); CREATININE 0.69 MG/DL (0.40-0.90); GLUCOSE 148 MG/DL (70-104); POTASSIUM 4.1 MMOL/L (3.5-5.1); SODIUM 144 MMOL/L (135-145); eCRCL 61 ML/MIN; eGFR 82 ML/MIN
[2024-01-16 10:26] LABS: ALANINE AMINOTRANSFERASE 19 U/L (12-78); ALKALINE PHOSPHATASE 107 IU/L (46-116); ASPARTATE AMINO TRANSFERASE 22 U/L (10-37); BILIRUBIN,DIRECT 0.2 MG/DL (0-0.3); BILIRUBIN,TOTAL 0.6 MG/DL (0.1-1.0); MAGNESIUM 1.7 MG/DL (1.5-2.4); TOTAL PROTEIN 8.1 G/DL (6.4-8.2)
[2024-01-16] MEDS ORDERED: morphine 2 MG/ML inj. syringe IV PRN (13:50)
[2024-01-16] MEDS ORDERED: ondansetron/PF 4mg/2ml inj IV PRN (13:50)
[2024-01-16] MEDS ORDERED: glucagon, human recombinant 1mg kit SUBCUT PRN (13:50)
[2024-01-16] MEDS ORDERED: insulin Lispro (HumaLOG) vial - multi-dose SQ SCH (13:50)
[2024-01-16] MEDS ORDERED: dextrose 50%-water 50ml dispensing syringe IV PRN ×2 (13:50)
[2024-01-16] MEDS ORDERED: mag hydrox/Alum hydrox/simeth 30ml oral suspension PO PRN (13:50)
[2024-01-16] MEDS ORDERED: DEXTROSE 15 GM of carb/4 tabs (each vial/BOTTLE has 4 tablets) PO PRN ×2 (13:50)
[2024-01-16] MEDS ORDERED: acetaminophen 325mg tablet PO PRN ×2 (13:50)
[2024-01-16] MEDS ORDERED: magnesium hydroxide 30ml (MOM) UD suspension PO PRN (13:50)
[2024-01-16] MEDS: MESSAGE TO PHARMACY PO ONE (14:22)
[2024-01-16 14:27] LABS: PRO BRAIN NATRIURETIC PEPTIDE 815 PG/ML (0-450)
[2024-01-16 14:38] LABS: HEMOGLOBIN A1C 8.3 % (4.5-6.2)
[2024-01-16] MEDS ORDERED: BLOO-1139 (16:05)
[2024-01-16] MEDS ORDERED: METF-1203 PO (16:05)
[2024-01-16] MEDS: docusate sod 100mg capsule PO SCH (19:08)
[2024-01-16] MEDS: insulin glargine (Lantus) pen - multi-dose SQ SCH (19:43)
[2024-01-16] MEDS: apixaban 5mg tablet PO SCH (19:46)
[2024-01-17] MEDS: aspirin 81mg, enteric-coated 1 TAB TABLET.DR PO SCH (08:27)
[2024-01-17 08:44] LABS: BASOPHILS # (AUTO) 0.1 X10'3 (0-0.2); EOSINOPHILS # (AUTO) 0.1 X10'3 (0-0.9); HEMOGLOBIN 12.9 g/dl (12.0-16.0); MEAN CORPUSCULAR HEMOGLOBIN 30.6 PG (27.0-31.0); MEAN CORPUSCULAR HGB CONC 33.4 g/dL (33.0-36.5); MEAN PLATELET VOLUME 8.4 FL (7.4-10.4); MONOCYTES # (AUTO) 0.6 X10'3 (0-0.9)
[2024-01-17 08:46] LABS: EOSINOPHILS % (AUTO) 1.7 % (0-6); HEMATOCRIT 38.6 % (35.0-45.0); LYMPHOCYTES % (AUTO) 37.9 % (21-51); MEAN CORPUSCULAR VOLUME 91.8 FL (78-98); MONOCYTES % (AUTO) 11.7 % (2-12); NEUTROPHILS # (AUTO) 2.6 X10'3 (1.8-7.7); NEUTROPHILS % (AUTO) 47.7 % (42-75); PLATELET COUNT 214 X10'3 (140-440); RED CELL DISTRIBUTION WIDTH 13.7 % (11.5-14.5); WHITE BLOOD COUNT 5.4 X10'3 (4.5-11.0)
[2024-01-17 10:19] VITALS: BP 126/76; PULSE 64; RESP 16; TEMP 97.7; O2SAT 96
[2024-01-17 10:34] LABS: ALBUMIN 3.9 G/DL (3.4-5.0); ANION GAP 11 (8-16); BLOOD UREA NITROGEN 13 MG/DL (7-18); BUN/CREATININE RATIO 19.4 (10.0-20.0); CALCIUM 9.7 MG/DL (8.5-10.1); CHLORIDE 108 MMOL/L (99-107); CHOL/HDL RATIO 2.2 (0.00-4.99); CHOLESTEROL 142 MG/DL (0-200); CREATININE 0.67 MG/DL (0.40-0.90); GLUCOSE 123 MG/DL (70-104); HDL CHOLESTEROL 64 MG/DL (35-60); LDL CHOLESTEROL 58 MG/DL (50-100); POTASSIUM 4.2 MMOL/L (3.5-5.1); SODIUM 144 MMOL/L (135-145); TOTAL CARBON DIOXIDE 24.8 MMOL/L (24-32); TRIGLYCERIDES 140 MG/DL (20-135); eCRCL 63 ML/MIN; eGFR 85 ML/MIN
[2024-01-17 10:38] VITALS: BP 126/84; PULSE 70; RESP 12; TEMP 98; O2SAT 95
[2024-04-03] MEDS ORDERED: LORA10TA7 PO (11:36)
[2024-04-04] MEDS ORDERED: LACT1CAP26 PO ×2 (14:08→15:43)
[2024-04-04] MEDS ORDERED: CEFD300C3 PO ×2 (14:08→15:41)
== END 2024-01-17 14:35 | disposition home or self-care (01) ==
LOC: ER 09:27 → ED HOLD 13:53 → ORTHO 4S 01-17 07:51
PROVIDERS: ADMIT Internal Medicine; ATTEND Internal Medicine
DX: G45.9 Transient cerebral ischemic attack, unspecified (principal); R47.1 Dysarthria and anarthria; I48.0 Paroxysmal atrial fibrillation; E11.9 Type 2 diabetes mellitus without complications; K21.9 Gastro-esophageal reflux disease without esophagitis; M34.9 Systemic sclerosis, unspecified; E78.00 Pure hypercholesterolemia, unspecified; F17.210 Nicotine dependence, cigarettes, uncomplicated; Z86.73 Personal history of transient ischemic attack (TIA), and cerebral infarction without residual deficits; Z79.01 Long term (current) use of anticoagulants; Z95.1 Presence of aortocoronary bypass graft; Z95.0 Presence of cardiac pacemaker; Z90.710 Acquired absence of both cervix and uterus; Z86.74 Personal history of sudden cardiac arrest; Z79.4 Long term (current) use of insulin; Z79.899 Other long term (current) drug therapy
CPT/HCPCS: 36415; 70450; 70496; 70498; 71045; 80048; 80061; 80076; 82948; 83036; 83735; 83880; 85025; 85610; 85730; 87081; 93005; 93306; 99291; G0378; J1815; J3490; Q9967

== ENCOUNTER 2025-10-23 12:20 | Inpatient (IN) | payer MEDICARE ==
[~2025-10-23] VITALS: Ht 165.1 cm; Wt 78.9 kg
[~2025-10-23 12:20] MED LIST changes: -ASPI-611 PO; +BLOO-1139; -CIPR250T4 PO; +LEVE250T PO; +LORA10TA7 PO; +METF-1203 PO; -ROSU10TA28 PO; +ROSU10TA98 PO
--- NOTE | 2025-10-23 12:43 | ELECTROCARDIOGRAPH REPORT ---
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 NIYAH Iglesias Measurements Intervals [place] Rate: 77 P: 0 NJ: 0 QRS: 113 QRSD: 122 T: 3 QT: 427 QTc: 484 Interpretive Statements Afib/flut and V-paced complexes No further rhythm analysis attempted due to paced rhythm Nonspecific intraventricular conduction delay Borderline T abnormalities, inferior leads Electronically Signed On 10-30-2025 19:38:[address] NIYAH Iglesias Please click the below link to view image of tracing.
[2025-10-23 13:15] LABS: MEAN PLATELET VOLUME 8.6 FL (7.4-10.4); RED CELL DISTRIBUTION WIDTH 13.6 % (11.5-14.5)
--- NOTE | 2025-10-23 13:15 | RADIOLOGY REPORT ---
AP portable chest Comparison: 08/01/2025 CLINICAL INDICATION: CP FINDINGS: Heart size is enlarged. Aorta is tortuous. No infiltrates or effusions. IMPRESSION: 1. No acute cardiopulmonary pathology
[2025-10-23 13:37] LABS: CREATININE 0.63 MG/DL (0.40-0.90); PRO BRAIN NATRIURETIC PEPTIDE 1222 PG/ML (0-450); TOTAL CARBON DIOXIDE 23.3 MMOL/L (24-32); eCRCL 65 ML/MIN; eGFR > 90 ML/MIN
--- NOTE | 2025-10-23 14:52 | Physician Documentation ---
History of Present Illness ~ Chief Complaint: Chest Pain Stated Complaint: HEART PALP Time Seen by MD: 14:25 Primary Medical Doctor: TANISHA HALL; NEURO: LIDIA; CARDIO: JANET Mode of Arrival: POV HPI Patient is seen today with complaints of chest pain and palpitations over the last three days. Patient does have history of atrial fibrillation with rapid ventricular response. Patient is concerned she might be having a heart attack. Patient denies any nausea or vomiting or diarrhea or abdominal pain or any significant shortness of breath or dyspnea on exertion. Patient has no other co ncern or complaint at this time. Patient does admit to taking blood thinners. Medication Reconciliation Allergies: Coded Allergies: No Known Allergies (Unverified , 10/23/25) Scheduled Apixaban (Eliquis), 1 TAB PO Q12H, (Reported) Blood Sugar Diagnostic (Contour Next), 1 STRIP .SEE ORDER BID, (Reported) Cholecalciferol (Vitamin D3) (Vitamin D3), 1 CAP PO DAILY, (Reported) Levetiracetam (Levetiracetam), 500 MG PO BID Loratadine (Loratadine), 10 MG PO DAILY, (Reported) Metformin HCl (Metformin HCl), 1 TAB PO BID, (Reported) Metoprolol Succinate (Metoprolol Succinate), 1 TAB PO DAILY, (Reported) Omeprazole (Omeprazole), 1 CAP PO DAILY, (Reported) Rosuvastatin Calcium (Rosuvastatin Calcium), 1 TAB PO DAILY, (Reported) Past Medical History Past Medical History: CVA/TIA/Stroke, Atrial Fibrillation, High Cholesterol, Bowel Obstruction, Diverticulitis, GERD, UTI, Diabetes Past Surgical History: hysterectomy, orthopedic surgeries Patient History: (CHF) Congestive heart failure MOTHER (Cancer) Malignant carcinoid tumor MOTHER (mom cervical cancer) (DM Type 2) Diabetes mellitus type 2 MOTHER CHILD, Onset:60 years & older (sister and grandma) Maternal grandmother (PR) Myocardial infarction MOTHER (possible mi) Hypercholesterolemia CHILD (sister) Scleroderma MOTHER No Family History of: (CABG) Coronary artery bypass grafting (CAD) Coronary arteriosclerosis (COPD) Chronic obstructive lung disease (CVA) Cerebrovascular accident (DM Type1) Diabetes mellitus type 1 (PVD) Peripheral vascular disease (TIA) Transient ischemic attack Alzheimer's disease Aortic aneurysm Asthma Cardiac arrest Alcohol Use: Occasionally Drug Use: none Lives with: Family Lives In: Home Occupation: retired Review of Systems Constitutional: Denies: chills, fever, weakness Eyes: Denies: pain, blurred vision ENT: Denies: ear pain, nose pain, throat pain, mouth pain Respiratory: Denies: cough, shortness of breath Cardiovascular: Denies: chest pain, palpitations Gastrointestinal: Denies: abdominal pain, nausea, vomiting Genitourinary: Denies: burning, dysuria Female Genitalia: Denies: vaginal discharge, pelvic pain Neurological: Denies: headache, dizziness Musculoskeletal: Denies: pain, swelling Integumentary: Denies: rash, lesions Allergic/Immunologic: Denies: hives, itching Hematologic/Lymphatic: Denies: no symptoms reported Psychiatric: Denies: depression, anxiety Physical Exam Vital Signs: Temperature: 97.1, Source: Temporal, Heart Rate: 76, Respiratory Rate: 18, BP: 143/94, Pulse Oximetry: 97, Weight: 78.900 Oxygen Flow Rate: 0 Physical Exam General: Awake and Alert, no acute distress. HEENT: Conjunctiva pink, Sclera clear, Mucus Membranes moist. Neck: Supple without masses and tenderness. Resp: Unlabored. Lungs clear to auscultation bilaterally. Heart: Regular Rate and rhythm, normal S1 and S2 without murmur, rub or gallop. Abdomen: Soft and non tender no organomegaly Extremities: No cyanosis,clubbing or edema. Skin: Warm and Dry. Progress Results/Orders Results/Orders Orders - ALEKS ROBLERO Hospitalist (10/23/25 14:51) Fill Out Med Reconciliation (10/23/25 14:51) Vital Signs 10/23/25 10/23/25 10/23/25 10/23/25 12:38 12:48 12:50 14:20 Temp 97.1 Pulse 83 76 78 Resp 16 16 18 16 B/P (MAP) 147/81 143/94 (110) 119/57 (77) Pulse Ox 97 97 94 O2 Flow Rate 0 Laboratory Tests Test 10/23/25 12:32 10/23/25 12:56 10/23/25 14:25 10/23/25 15:22 Hemoglobin A1c 6.9 H Phosphorus Level 3.4 Magnesium Level 1.2 L Thyroid Stimulating Hormone (TSH) 1.81 White Blood Count 6.8 Red Blood Count 4.16 L Hemoglobin 12.7 Hematocrit 38.4 Mean Corpuscular Volume 92.3 Mean Corpuscular Hemoglobin 30.5 Mean Corpuscular Hemoglobin Concent 33.1 Red Cell Distribution Width 13.6 Platelet Count 217 Mean Platelet Volume 8.6 Neutrophils (%) (Auto) 58.0 Lymphocytes (%) (Auto) 30.0 Monocytes (%) (Auto) 9.9 Eosinophils (%) (Auto) 1.3 Basophils (%) (Auto) 0.8 Neutrophils # (Auto) 3.9 Lymphocytes # (Auto) 2.0 Monocytes # (Auto) 0.7 Eosinophils # (Auto) 0.1 Basophils # (Auto) 0.1 CBC Comment Prothrombin Time 11.5 INR International Normalized Ratio 1.1 Activated Partial Thromboplast Time 28 Coagulation Comments Sodium Level 141 Potassium Level 4.1 Chloride Level 107 Carbon Dioxide Level 23.3 L Anion Gap 11 Blood Urea Nitrogen 13 Creatinine 0.63 Estimated GFR/1.73 m2 > 90 BUN/Creatinine Ratio 20.6 H Glucose Level 115 H Calcium Level 9.4 Troponin I High Sensitivity 6 7 8 Pro-B-Type Natriuretic Peptide 1222 H Albumin 4.0 Chemistry Comments Troponin I High Sens Percent Delta 16 14 Troponin I Hi Sens Absolute Change 1 1 Heart Score: Heart Score Response (Comments) Value History Moderate Suspicious 1 EKG Normal 0 Age >65 2 Risk Factors 1 or 2 risk factors 1 Troponin Normal limit 0 Total 4 Medical Decision Making Additional information obtaine: N/A Findings Patient is seen today with complaints of chest pain and palpitations over the last three days. Patient does have history of atrial fibrillation with rapid ventricular response. Patient is concerned she might be having a heart attack. Patient denies any nausea or vomiting or diarrhea or abdominal pain or any significant shortness of breath or dyspnea on exertion. Patient has no other concern or complaint at this time. Patient does admit to taking blood thinners. Patient did have labs that were unremarkable however patient's heart score is four and I did consult with hospitalist for cardiac workup and further eval and treatment. Heart Score: 4 Differential Dx:Considerations: Include: angina, chest wall pain, CHF, myocardial infarction, pneumonia, pneumothorax, pulmonary embolus Departure Disposition: ADMITTED INPATIENT Admitted to Inpatient Unit: to hospitalist Admission Level of Care: Med/Surg with Tele Impression: Primary Impression: Chest pain at rest Condition: Fair Discharge Instructions: Nonspecific Chest Pain, Adult Additional Instructions: Patient did have labs that were unremarkable however patient's heart score is four and I did consult with hospitalist for cardiac workup and further eval and treatment. Referrals: NO PRIMARY CARE PROVIDER (PCP) Signature Scribe Signature: No scribe Attestation: No scribe ALEKS ROBLERO PAC Oct 23, 2025 14:52
[2025-10-23] MEDS ORDERED: magnesium Cl slow-release 64mg tablet PO PRN (15:40)
[2025-10-23] MEDS ORDERED: magnesium hydroxide 30ml (MOM) UD suspension PO PRN (15:40)
[2025-10-23] MEDS ORDERED: HYDROmorphone inj. 0.5 MG/0.5 ML DISP.SYRIN IV PRN (15:40)
[2025-10-23] MEDS ORDERED: potassium Cl 40MEQ/1/2NS 520ml 520 ML IV PRN (15:40)
[2025-10-23] MEDS ORDERED: potassium Cl 20 mEq SR tablet PO PRN ×2 (15:40)
[2025-10-23] MEDS ORDERED: mag hydrox/Alum hydrox/simeth 30ml oral suspension PO PRN (15:40)
[2025-10-23] MEDS ORDERED: ondansetron/PF 4mg/2ml inj IV PRN (15:40)
[2025-10-23] MEDS ORDERED: magnesium sulf-water 4G/100mL 100 ML IV PRN (15:40)
--- NOTE | 2025-10-23 15:51 | HISTORY AND PHYSICAL-Residence ---
History & Physical Providers to CC Resident Creating Document: FERNANDA HERRERA, RES CC: DARIEN ROWELL MD ~ History of Present Illness Primary Medical Doctor: TANISHA HALL; NEURO: LIDIA; CARDIO: JANET Reason for Admit\Complaint: Stable angina History of Present Illness A 80-year-old female with past medical history of atrial fibrillation status post leadless pacemaker placement(currently on Eliquis), type 2 diabetes mellitus, seizures, baseline dementia, TIA presented to the ED with chief complaints of chest pain and palpitation. Patient stated that she has been having recurrent episodes of chest pain and palpitations since the last three days on exertion. She described the chest pain as midsternal, heavy type of pain, rated the pain 3/10, radiating to bilateral chest. In addition she also experienced palpitations for few minutes and exertion which went away with rest. She denied any paroxysmal nocturnal dyspnea, shortness of breath. 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 Verdugo Patient's primary care doctor is from [place]: , neurologist Dr. Randle Patient normally ambulates on her own Allergies: Coded Allergies: No Known Allergies (Unverified , 10/23/25) Home Medications Home Medications Active Levetiracetam 250 Mg Tablet 500 Mg PO BID 30 Days Reported Loratadine 10 Mg Tablet 10 Mg PO DAILY Contour Next (Blood Sugar Diagnostic) 1 Each Strip 1 Strip .SEE ORDER BID Metformin HCl 500 Mg Tablet 1 Tab PO BID Eliquis (Apixaban) 5 Mg Tablet 1 Tab PO Q12H 30 Days Metoprolol Succinate 50 Mg Tab.sr.24h 1 Tab PO DAILY Vitamin D3 (Cholecalciferol (Vitamin D3)) 125 Mcg Capsule 1 Cap PO DAILY Omeprazole 20 Mg Capsule. 1 Cap PO DAILY Rosuvastatin Calcium 10 Mg Tablet 1 Tab PO DAILY Past Medical History Past Medical History TIA one year ago Atrial fibrillation (on Eliquis) status post leadless pacemaker placement Type 2 diabetes mellitus Seizures Past Surgical History Surgical History Comment Hysterectomy Right arch foot repair Bilateral cataracts Abdominal surgery post volvulus Family History Family History: (CHF) Congestive heart failure MOTHER (Cancer) Malignant carcinoid tumor MOTHER (mom cervical cancer) (DM Type 2) Diabetes mellitus type 2 MOTHER CHILD, Onset:60 years & older (sister and grandma) Maternal grandmother (MD) Myocardial infarction MOTHER (possible mi) Hypercholesterolemia CHILD (sister) Scleroderma MOTHER No Family History of: (CABG) Coronary artery bypass grafting (CAD) Coronary arteriosclerosis (COPD) Chronic obstructive lung disease (CVA) Cerebrovascular accident (DM Type1) Diabetes mellitus type 1 (PVD) Peripheral vascular disease (TIA) Transient ischemic attack Alzheimer's disease Aortic aneurysm Asthma Cardiac arrest Past Social History Social History Comment Former smoker, she quit smoking two years ago, used to smoke about one pack of cigarettes for 50 years Occasional alcohol use Denied any other illicit drug use Smoking: Cigarettes Alcohol Use: Occasionally Drug Use: None Lives with: Family Lives In: Home Occupation: retired ROS ROS Constitutional: No fever, dizziness, weakness, no decrease in appetite HEENT: Normal vision. No sore throat, epistaxis, tinnitus Cardiovascular: No chest pain, no palpitations, no syncope. no pedal edema Respiratory: No sob, cough,hemoptysis Gastrointestinal: No abdominal pain, nausea, vomiting. No diarrhea, melena. Genitourinary: No frquency, urgency, incontinence, nocturia. No dysuria, hematuria Musculoskeletal: Normal, no pains Endocrine: No fatigue, polydipsia, polyuria. No heat or cold intolerance Neurologic: No headache, vertigo. No weakness, numbness or tingling of extremities Psychiatric: No hallucinations/delusions, no anhedonia, no suicidal ideation Hematologic: No bruises Exam Vitals: Vital Signs Date Time Temp Pulse Resp B/P (MAP) Pulse Ox O2 Delivery O2 Flow Rate FiO2 10/23/25 12:50 18 10/23/25 12:48 76 97 10/23/25 12:38 97.1 0 General: General: Awake, oriented to person, place and time HEENT: Conjunctive are pink, sclerae clear, no icterus, pupil is equal in both sides, reactive to light, no ear discharge, no pharyngeal erythema or an edema. Neck: Supple, no JVD, no lymphadenopathy and thyromegaly. Chest: Equal air entry on both lungs, no additional sounds no rhonchi no wheezing at the moment. Cardiovascular: S1-S2 irregular rhythm and, regular rate, no gallops, no rubs, no murmurs Abdomen: No visible peristalsis, Bowel sounds present on auscultation, soft, no tenderness, no guarding, no rigidity, abdominal scar post surgery Extremities: No obvious deformities, no pitting edema bilaterally, capillary refill intact, peripheral pulsations are intact on both sides Neurologic: Mental status: alert and conscious, oriented to place, person and time, preserved memory, normal speech. Cranial nerves I-XII: Normal. Motor system: Preserved power, coordination, no evidenced involuntary movements, bilateral lower extremity strength 3/5, bilateral upper extremities 5/5 Sensory system: Preserved temperature, pain and vibration sensation. 2+ deep tendon reflexes in biceps, triceps, quadriceps. Negative Babinski. Cerebellar: No nystagmus, dysdiadochokinesia, normal [id number] testing. Musculoskeletal: No joint swelling, deformities, inflammations, and no scoliosis and back tenderness Skin: Warm and dry. Dry oral mucosa. Diagnostic Data Last Recorded Lab Results: 10/23/25 1256 10/23/25 1256 Advance Care Planning Advanced Care plannin - 30 Minutes (Spent 17 minutes discussing advanced care planning/resuscitative methods patient decided she wanted to be full code) Additional Plan Stable angina,Heart score 4 ACS ruled out Denies any chest pain Serial troponins negative, chest x-ray reported cardiomegaly EKG shows atrial fibrillation rate controlled, no ST segment elevations, ST depressions were noted Plan Initiated the patient on telemetry monitoring is aware of the patient, we will consider stress test if patient develops any chest pain or any telemetry changes History of atrial fibrillation status post leadless pacemaker Currently rate well controlled Continue Eliquis 5 mg b.i.d. Hyperlipidemia Continue rosuvastatin 10 mg once daily Hypertension Continue patient's home medication metoprolol succinate 50 mg p.o. once daily Type 2 diabetes mellitus Home medications include 500 mg metformin b.i.d. Initiated the patient on Lantus 16 units and low-dose sliding hyperglycemia hypoglycemic sliding scale Ordered HbA1c History of seizures Continue the patient on levetiracetam 500 mg p.o. b.i.d. Code Status: Full code DVT Prophylaxis: Eliquis Lines/Tubes: PIV Gi Prophylaxis: Omeprazole Nutrition: Heart healthy diet PT:yes Prognosis: Guarded Disposition: We will continue to monitor the patient on telemetry. We will consider doing a stress test on the patient tomorrow if patient has persistent chest pain, telemetry changes and EKG changes The above note has been reviewed and supervised by the senior resident PGY 2/PGY 3. Patient was seen and examined and discussed with attending physician Fernanda Herrera MD Internal medicine resident,PGY-1 Date of Service: Oct 23, 2025 Billing Provider: DARIEN ROWELL MD Common Visit Codes: 11275-[id number] INP/OBS CARE (HIGH) Secondary Visit Codes: 84046-[id number] CARE PLAN 30 MINUTES FERNANDA HERRERA, RES Oct 23, 2025 15:51 DARIEN ROWELL MD Oct 26, 2025 14:01
[2025-10-23] MEDS ORDERED: DEXTROSE 15 GM of carb/4 tabs (each vial/BOTTLE has 4 tablets) PO PRN ×2 (16:00)
[2025-10-23] MEDS ORDERED: dextrose 50%-water 50ml dispensing syringe IV PRN ×2 (16:00)
[2025-10-23] MEDS ORDERED: glucagon, human recombinant 1mg kit SUBCUT PRN (16:00)
[2025-10-23 16:14] LABS: APTT 28 SECONDS (22-32); INR 1.1 INR
[2025-10-23] MEDS: PERFLUTREN PROTEIN-A MICROSPHR (Optison) 0.22 MG/ML 3ML VIAL IV ONE (16:19)
[2025-10-23 16:29] LABS: PHOSPHORUS 3.4 MG/DL (2.3-4.5)
[2025-10-23] MEDS: INSULIN LISPRO 100 UNIT/ML INSULN.PEN MULTI-DOSE SQ SCH (17:00)
[2025-10-23 18:00] VITALS: BP 132/80; PULSE 61; RESP 19; TEMP 97; O2SAT 95
[2025-10-23] MEDS: K and/or MAG REPLACEMENT MC SCH (19:04)
[2025-10-23] MEDS: docusate sod 100mg capsule PO SCH (19:29)
[2025-10-23 20:00] VITALS: RESP 20; O2SAT 96
[2025-10-23] MEDS: insulin glargine (Lantus) pen - multi-dose SQ SCH (20:21)
[2025-10-23 22:00] VITALS: BP 137/82; PULSE 60; RESP 17; TEMP 97; O2SAT 97
[2025-10-24] VITALS (7 sets, daily range): BP systolic 120–152; BP diastolic 80–87; PULSE 60–86; RESP 15–18; TEMP 97.2–98.2; O2SAT 94–97
[2025-10-24 06:44] LABS: MEAN PLATELET VOLUME 8.4 FL (7.4-10.4); RED CELL DISTRIBUTION WIDTH 13.8 % (11.5-14.5)
[2025-10-24] MEDS: pantoprazole 40mg Tablet.DR PO SCH (07:31)
[2025-10-24] MEDS: metoprolol succinate 25mg (24-HOUR) SR. Tablet PO SCH (07:31)
[2025-10-24 07:55] LABS: CREATININE 0.58 MG/DL (0.40-0.90); TOTAL CARBON DIOXIDE 26.8 MMOL/L (24-32); eCRCL 71 ML/MIN; eGFR > 90 ML/MIN
[2025-10-24] MEDS ORDERED: aminophylline 250mg/10ml inj. IV PRN (10:40)
[2025-10-24] MEDS ORDERED: metoprolol tartrate 1mg/ml inj IV PRN (10:40)
--- NOTE | 2025-10-24 13:14 | PROGRESS NOTE- Residence ---
Progress Note - Resident Providers to CC Resident Creating Document: KIERRA HERRERA, LOVE CC: DARIEN ROWELL MD ~ Antibiotic Timeout Antibiotic Ordered?: No Subjective Patient was seen and examined at bedside. Patient denied any acute chest pain, palpitations overnight. Had a discussion with , who stated that he was fine with the patient getting a Lexiscan outpatient or inpatient. Opportunity was given to the patient to make a decision and she stated that she wanted to get Lexiscan inpatient. Patient will undergo Lexiscan in the morning Objective Vital Signs Date Time Temp Pulse Resp B/P (MAP) Pulse Ox O2 Delivery O2 Flow Rate FiO2 10/24/25 11:00 97.4 86 18 133/84 (100) 95 Room Air 0.0 Result Diagram: 10/24/2554710/24/25547 General: Awake, oriented to person, place and time HEENT: Conjunctive are pink, sclerae clear, no icterus, pupil is equal in both sides, reactive to light, no ear discharge, no pharyngeal erythema or an edema. Neck: Supple, no JVD, no lymphadenopathy and thyromegaly. Chest: Equal air entry on both lungs, no additional sounds no rhonchi no wheezing at the moment. Cardiovascular: S1-S2 irregular rhythm and, regular rate, no gallops, no rubs, no murmurs Abdomen: No visible peristalsis, Bowel sounds present on auscultation, soft, no tenderness, no guarding, no rigidity, abdominal scar post surgery Extremities: No obvious deformities, no pitting edema bilaterally, capillary refill intact, peripheral pulsations are intact on both sides Neurologic: Mental status: alert and conscious, oriented to place, person and time, preserved memory, normal speech. Cranial nerves I-XII: Normal. Motor system: Preserved power, coordination, no evidenced involuntary movements, bilateral lower extremity strength 3/5, bilateral upper extremities 5/5 Sensory system: Preserved temperature, pain and vibration sensation. 2+ deep tendon reflexes in biceps, triceps, quadriceps. Negative Babinski. Cerebellar: No nystagmus, dysdiadochokinesia, normal [id number] testing. Musculoskeletal: No joint swelling, deformities, inflammations, and no scoliosis and back tenderness Skin: Warm and dry. Dry oral mucosa. Coagulation Studies Laboratory Tests Test 10/23/25 12:56 Prothrombin Time 11.5 SECONDS (9.0-12.0) INR International Normalized Ratio 1.1 INR Activated Partial Thromboplast Time 28 SECONDS (22-32) Coagulation Comments Advance Care Planning Advanced Care plannin - 30 Minutes Assessment Assessment A 80-year-old female with past medical history of atrial fibrillation status post leadless pacemaker placement(currently on Eliquis), type 2 diabetes mellitus, seizures, baseline dementia, TIA presented to the ED with chief complaints of chest pain and palpitation. Currently being evaluated for stable angina Plan Plan Stable angina, resolved Heart score 4 ACS ruled out Denies any chest pain currently and from the time of admission did not require any medications for relief of chest pain Serial troponins negative, chest x-ray reported cardiomegaly EKG shows atrial fibrillation rate controlled, no ST segment elevations, ST depressions were noted Telemetry monitoring in the last one day, reported chronic atrial fibrillation rate controlled Overnight patient did not develop any chest pain or palpitation Echocardiogram reported normal systolic function with EF of 55-60% Plan Had a discussion with , who stated that he was fine with the patient getting a Lexiscan outpatient or inpatient. Opportunity was given to the patient to make a decision and she stated that she wanted to get Lexiscan inpatient Ordered Lexiscan for tomorrow a.m. patient will be kept NPO from tonight Continue nitroglycerin 0.4 mg p.r.n. History of atrial fibrillation status post leadless pacemaker Currently rate well controlled Continue Eliquis 5 mg b.i.d. We will hold tonight's Eliquis dose as patient is getting Lexiscan tomorrow. recommended holding this dose tonight to be on the safer side if any further intervention is required post Lexiscan Hyperlipidemia Lipid panel was done on 08/02/2025 LDL, cholesterol and HDL within normal limits Continue rosuvastatin 10 mg once daily Hypertension Continue patient's home medication metoprolol succinate 50 mg p.o. once daily Type 2 diabetes mellitus HGB A1c fairly well controlled at 6.9% Home medications include 500 mg metformin b.i.d. Continue the patient on Lantus 16 units and low-dose sliding hyperglycemia hypoglycemic sliding scale History of seizures Continue the patient on levetiracetam 500 mg p.o. b.i.d. Code Status: Full code DVT Prophylaxis: Eliquis Lines/Tubes: PIV Gi Prophylaxis: Omeprazole Nutrition: Heart healthy diet, NPO after midnight PT:yes Prognosis: Guarded Disposition: We will continue to monitor the patient on telemetry. Lexiscan tomorrow morning in the a.m. The above note has been reviewed and supervised by the senior resident PGY 2/PGY 3. Patient was seen and examined and discussed with attending physician Kierra Herrera MD Internal medicine resident,PGY-1 Date of Service: Oct 24, 2025 Billing Provider: DARIEN ROWELL MD Common Visit Codes: [id number] INP/OBS CARE(HIGH) KIERRA HERRERA, RES Oct 24, 2025 13:14 DARIEN ROWELL MD Oct 26, 2025 14:01
--- NOTE | 2025-10-24 14:02 | CARDIOLOGY REPORT ---
APPROVED REPORT EXAM: Comprehensive 2D, Doppler, and color-flow Echocardiogram. Patient Location: 302 Heart Rate: 63 bpm Rhythm: Atrial FibrillationPacemaker Indications CHEST PAIN ELEVATED PRO BNP 1222 PACEMAKER DIABETES MELLITUS 2 ENGINEERING SURVEYOR: NIYAH HALL MD PRIOR ECHOCARDIOGRAM: 08/02/2025 [facility] LVEF 60-65%; RVSP 54 mmHg; m LAE; m AV SCLEROSIS; mod AI; m TR 2D Dimensions RVDd 3.5 cm IVSd 1.0 (0.7-1.1cm) LVDd 5.1 cm PWd 1.1 (0.7-1.1cm) IVSs 1.2 (0.8-1.2cm) LVDs 3.6 (2.5-4.0cm) PWs 1.8 (0.8-1.2cm) LVOT Diameter 1.99 (1.8-2.4cm) LVEF(%) 58.0 (>50%) FS (%) 30.8 % SV 73.2 ml CO 5.6 L/min M-Mode Dimensions Left Atrium(MM) 5.10 (2.5-4.0cm) Aortic Root 2.97 (2.2-3.7cm) Aortic Cusp Exc 2.06 (1.5-2.0cm) Aortic Valve AoV Peak Jesus. 123.3 cm/s AoV VTI 23.6 cm AO Peak GR. 6.1 mmHg AO Mean GR. 3 mmHg LVOT VTI 17.67 cm LVOT Peak Jesus. 93.8 cm/s JAD(VTI)/BSA 2.34 cm2/m2 JAD (VTI) 2.34 cm2 AI P 1/2 Time 648 ms AV DI 0.75 % Mitral Valve MV E Velocity 77.0 cm/s MV Peak Gr. 4 mmHg MV PHT 68 ms MVA (PHT) 3.24 cm2 MV VMax 93.7 cm/s Tricuspid Valve TR P. Velocity 274 cm/s RAP ESTIMATE 5 mmHg TR Peak Gr. 30 mmHg RVSP 35 mmHg LEFT VENTRICLE Normal LV size and wall thickness. Overall systolic function is normal. Overall LVEF is 55-60%. RIGHT VENTRICLE RV is normal size and function. RVSP is 35 mmHg. Pacemaker wire in right heart. ATRIA Left atrium is moderately dilated. Right atrium is mildly dilated. AORTIC VALVE Trileaflet AV appears mildly sclerotic without stenosis. Moderate insufficiency by color and spectral flow Doppler. MITRAL VALVE Mild mitral annular calcification. Mild regurgitation. TRICUSPID VALVE TV appears structurally normal with mild/moderate regurgitation by color and spectral flow Doppler. PULMONIC VALVE Pulmonic valve is not well visualized. GREAT VESSELS The aortic root is normal in size. The ascending aorta is normal in size. The IVC is normal in size and collapses >50% with inspiration. PERICARDIUM Normal pericardium. No effusion. Other Information Study Quality: Adequate Technically limited study due to incedential finding small liver cyst visualized Conclusion Overall LVEF is 55-60%. Normal LV size and wall thickness. Overall systolic function is normal. RV is normal size and function. RVSP is 35 mmHg. Pacemaker wire in right heart. Trileaflet AV appears mildly sclerotic without stenosis. Moderate insufficiency by color and spectral flow Doppler. Mild mitral annular calcification. Mild regurgitation. TV appears structurally normal with mild/moderate regurgitation by color and spectral flow Doppler. Normal pericardium. No effusion.
[2025-10-24] MEDS: magnesium sulf-water 2g/50mL 50 ML IV PRN (21:48)
[2025-10-25] VITALS (11 sets, daily range): BP systolic 131–162; BP diastolic 69–98; PULSE 60–78; RESP 14–18; TEMP 97.2–97.6; O2SAT 96–99
[2025-10-25 06:17] LABS: MEAN PLATELET VOLUME 8.3 FL (7.4-10.4); RED CELL DISTRIBUTION WIDTH 13.5 % (11.5-14.5)
[2025-10-25 06:35] LABS: CREATININE 0.55 MG/DL (0.40-0.90); TOTAL CARBON DIOXIDE 28.0 MMOL/L (24-32); eCRCL 75 ML/MIN; eGFR > 90 ML/MIN
[2025-10-25] MEDS: regadenoson 0.4mg/5ml syringe IV PRN (09:21)
--- NOTE | 2025-10-25 09:53 | CONSULTATION REPORT - RESIDENT ---
Consult Providers to CC Resident Creating Document: VONDAJT REDMANLOVE DIAZ History of Present Illness Primary Medical Doctor: Ayanna keller: Reason for Admit\Complaint: Chest pain and palpitations History of Present Illness A 80-year-old female with past medical history of atrial fibrillation status post leadless pacemaker placement(currently on Eliquis), type 2 diabetes mellitus, seizures, baseline dementia, TIA , hypertension, hyperlipidemia presented to the ED with chief complaints of chest pain and palpitation. She reported multiple episodes of chest pain for the past 4 to 5 days but improved on today, initially rated 3/10,midsternal, more in the form of heaviness, radiating to bilateral chest. She endorses palpitations since the last three days for few minutes,aggravated with exertion and relieved with rest. She denied shortness of breath, orthopnea, PND, pedal edema. Abdominal distention, abdominal pain. Allergies: Coded Allergies: No Known Allergies (Unverified , 10/23/25) Home Medications Home Medications Active Levetiracetam 250 Mg Tablet 500 Mg PO BID 30 Days Reported Loratadine 10 Mg Tablet 10 Mg PO DAILY Contour Next (Blood Sugar Diagnostic) 1 Each Strip 1 Strip .SEE ORDER BID Metformin HCl 500 Mg Tablet 1 Tab PO BID Eliquis (Apixaban) 5 Mg Tablet 1 Tab PO Q12H 30 Days Metoprolol Succinate 50 Mg Tab.sr.24h 1 Tab PO DAILY Vitamin D3 (Cholecalciferol (Vitamin D3)) 125 Mcg Capsule 1 Cap PO DAILY Omeprazole 20 Mg Capsule.dr 1 Cap PO DAILY Rosuvastatin Calcium 10 Mg Tablet 1 Tab PO DAILY Past Medical History Past Medical History TIA one year ago Atrial fibrillation (on Eliquis) status post leadless pacemaker placement Type 2 diabetes mellitus Seizures Hyperlipidemia Hypertension Past Surgical History Surgical History Comment Hysterectomy Right arch foot repair Bilateral cataracts Abdominal surgery post volvulus Family History Family History: (CHF) Congestive heart failure MOTHER (Cancer) Malignant carcinoid tumor MOTHER (mom cervical cancer) (DM Type 2) Diabetes mellitus type 2 MOTHER CHILD, Onset:60 years & older (sister and grandma) Maternal grandmother ([place]) Myocardial infarction MOTHER (possible mi) Hypercholesterolemia CHILD (sister) Scleroderma MOTHER No Family History of: (CABG) Coronary artery bypass grafting (CAD) Coronary arteriosclerosis (COPD) Chronic obstructive lung disease (CVA) Cerebrovascular accident (DM Type1) Diabetes mellitus type 1 (PVD) Peripheral vascular disease (TIA) Transient ischemic attack Alzheimer's disease Aortic aneurysm Asthma Cardiac arrest Past Social History Social History Comment Former smoker, she quit smoking two years ago, used to smoke about one pack of cigarettes for 50 years Occasional alcohol use Denied any other illicit drug use Smoking: Cigarettes Alcohol Use: Occasionally Drug Use: None Lives with: Family Lives In: Home Occupation: retired ROS ROS Constitutional: No fever, dizziness, weakness, no decrease in appetite HEENT: Normal vision. No sore throat, epistaxis, tinnitus Cardiovascular: No chest pain, no palpitations, no syncope. no pedal edema Respiratory: No sob, cough,hemoptysis Gastrointestinal: No abdominal pain, nausea, vomiting. No diarrhea, melena. Genitourinary: No frquency, urgency, incontinence, nocturia. No dysuria, hematuria Musculoskeletal: Normal, no pains Endocrine: No fatigue, polydipsia, polyuria. No heat or cold intolerance Neurologic: No headache, vertigo. No weakness, numbness or tingling of extremities Psychiatric: No hallucinations/delusions, no anhedonia, no suicidal ideation Hematologic: No bruises Exam Vitals: Vital Signs Date Time Temp Pulse Resp B/P (MAP) Pulse Ox O2 Delivery O2 Flow Rate FiO2 10/25/25 09:36 70 18 135/70 96 Room Air 10/25/25 02:00 97.4 0.0 General: General: Alert, awake, oriented to time place person. HEENT: Conjunctive are pink, sclerae clear, no icterus, pupil is equal in both sides, reactive to light, no ear discharge, no pharyngeal erythema or an edema. Neck: Supple, no JVD, no lymphadenopathy and thyromegaly. Chest: Equal air entry on both lungs, no additional sounds no rhonchi no wheezing at the moment. Cardiovascular: S1-S2 irregularly irregular, no gallops, no rubs, no murmurs Abdomen: Soft, nondistended, nontender, no rebound tenderness, no guarding, no rigidity. Bowel sounds are heard. No organomegaly. Extremities: No obvious deformities, no pitting edema bilaterally, capillary refill intact, peripheral pulsations are intact on both sides Musculoskeletal: No joint swelling, deformities, inflammations, and no scoliosis and back tenderness Skin: Warm and dry. Diagnostic Data Last Recorded Lab Results: 10/25/25 0554 10/25/25 0554 Diagnostic Data: Laboratory Tests Test 10/23/25 12:56 Prothrombin Time 11.5 SECONDS (9.0-12.0) INR International Normalized Ratio 1.1 INR Activated Partial Thromboplast Time 28 SECONDS (22-32) Coagulation Comments Additional Plan 80-year-old female with Angina with heart score of 4 Moderate aortic insufficiency Moderate tricuspid regurgitation Serial troponins negative, EKG shows atrial fibrillation rate controlled, no ST segment elevations, ST depressions were noted Telemetry monitoring in the last one day, reported chronic atrial fibrillation rate controlled Echocardiogram reported normal systolic function with EF of 55-60% and moderate aortic insufficiency and [id number] tricuspid regurgitation Patient opted for inpatient Lexiscan . Start the patient on nitroglycerin 0.4 mg p.r.n for chest pain We will review the Lexiscan Started on aspirin 81 mg p.o. daily because of 15% risk of ASCVD if not the patient on Eliquis Continue rosuvastatin 10 mg p.o. daily History of atrial fibrillation status post leadless pacemaker Currently rate well controlled Held Eliquis in view of possible cardiac intervention if Lexiscan is positive for inducible ischemia Continue metoprolol and Eliquis after the Isadora negative Hyperlipidemia Lipid panel was done on 08/02/2025 LDL is 49 and within target level of less than 55 Continue rosuvastatin 10 mg once daily Hypertension Blood pressure is well controlled with metoprolol 50 and continue the same dose. Type 2 diabetes mellitus Well controlled and HGB A1c is 6.9% Management per hospitalist team with insulin regimen History of seizures TIA prior history Continue the patient on levetiracetam 500 mg p.o. b.i.d per hospitalist team. Dav Holden IM resident, PGY 2 Cardiology Patient seen and examined by Dr. Fatoumata JUAN. Myocardial perfusion scan negative for ischemia. Continue medical therapy. Sepsis Screening Reassessment Date: Oct 26, 2025 Date of Service: Oct 25, 2025 Billing Provider: LUCERO HALL MD, VENKATESH, RES Oct 25, 2025 09:53 LUCERO HALL MD Oct 26, 2025 19:00
--- NOTE | 2025-10-25 10:54 | RADIOLOGY REPORT ---
CLINICAL INFORMATION: Stable angina. TECHNIQUE: 8.8 mCi of technetium 99m sestamibi was infused at rest. Rest SPECT imaging was obtained. Routine protocol for Lexiscan stress study was performed with 0.4 mg of Lexiscan. 34.7 mCi of technetium 99m sestamibi was infused. Stress SPECT imaging was obtained. COMPARISON: None FINDINGS: Resting heart rate of 61 BPM increased to maximum rate of 83 BPM. Resting blood pressure of 140/79 increased to 162/69. There were no significant ST-T wave EKG changes. There was no chest pain. There is moderately diminished perfusion involving the septal wall near the apex on both stress and rest images, to a greater degree on rest, suggesting at least partially due to artifact. No evidence of stress-induced ischemia. TID ratio is 1.09. Wall motion imaging appears normal. Calculated left ventricular ejection fraction is 72%. IMPRESSION: 1. No evidence of stress-induced ischemia. 2. Left ventricular ejection fraction is 72%.
[2025-10-25] MEDS: aspirin 81mg, enteric-coated 1 TAB TABLET.DR PO ONE (12:06)
--- NOTE | 2025-10-25 18:30 | DISCHARGE SUMMARY-Residence ---
Discharge Summary Providers to CC Resident Creating Document: MALAIKA ORTIZ CC: DARIEN ROWELL MD ~ Discharge Summary Admission Diagnosis: STABLE ANGINA Hospital Course DATE OF ADMISSION: 10/23/2025 DATE OF DISCHARGE: 10/25/2025 Discharge Diagnosis\Comment: Stable angina ACS ruled out Chronic Atrial fibrillation Moderate tricuspid valve regurgitation Moderate mitral valve regurgitation Hyperlipidemia Hypertension Type 2 diabetes mellitus HGB A1c fairly well controlled at 6.9% Seizure disorder Operations\Procedures: None Consultants: Dr Iglesias, cardiology Complications: None Condition on DC: Stable Continued Medications: Apixaban (Eliquis) 5 Mg Tablet 1 TAB PO Q12H for 30 Days, #60 TAB Blood Sugar Diagnostic (Contour Next) 1 Each Strip 1 STRIP .SEE ORDER BID Cholecalciferol (Vitamin D3) (Vitamin D3) 125 Mcg Capsule 1 CAP PO DAILY Levetiracetam (Levetiracetam) 250 Mg Tablet 500 MG PO BID for 30 Days, #120 TAB Loratadine (Loratadine) 10 Mg Tablet 10 MG PO DAILY, #30 TAB Metformin HCl (Metformin HCl) 500 Mg Tablet 1 TAB PO BID Metoprolol Succinate (Metoprolol Succinate) 50 Mg Tab.sr.24h 1 TAB PO DAILY Omeprazole (Omeprazole) 20 Mg Capsule.dr 1 CAP PO DAILY Rosuvastatin Calcium (Rosuvastatin Calcium) 10 Mg Tablet 1 TAB PO DAILY Discharge Summary: Patient was admitted with the following HPI by Dr. Fernanda Savage: A 80-year-old female with past medical history of atrial fibrillation status post leadless pacemaker placement(currently on Eliquis), type 2 diabetes mellitus, seizures, baseline dementia, TIA presented to the ED with chief complaints of chest pain and palpitation. Patient stated that she has been having recurrent episodes of chest pain and palpitations since the last three days on exertion. She described the chest pain as midsternal, heavy type of pain, rated the pain 3/10, radiating to bilateral chest. In addition she also experienced palpitations for few minutes and exertion which went away with rest. She denied any paroxysmal nocturnal dyspnea, shortness of breath. Patient lives with her her house Patient's dishcloth folder Dr. Verdugo Patient's primary care doctor is from [facility]: , neurologist Dr. Randle Patient normally ambulates on her own Hospital course: Patient was admitted with diagnosis of chest pain attributed to stable angina with high heart score for further evaluation. Patient underwent imaging studies including echocardiogram and Lexiscan which did not indicate need for further intervention. Patient was consulted by Dr Iglesias who agreed with no intervention at this time. She will follow up outpatient. She remained otherwise asymptomatic and hemodynamically stable during hospital course. She will be discharged home today. Imaging: Lexiscan: No evidence of stress-induced ischemia. Left ventricular ejection fraction is 72%. Echocardiogram: Overall LVEF is 55-60%. Normal LV size and wall thickness. Overall systolic function is normal. RV is normal size and function. RVSP is 35 mmHg. Pacemaker wire in right heart. Trileaflet AV appears mildly sclerotic without stenosis. Moderate insufficiency by color and spectral flow Doppler. Mild mitral annular calcification. Mild regurgitation. TV appears structurally normal with mild/moderate regurgitation by color and spectral flow Doppler. Normal pericardium. No effusion. Chest x-ray: No acute cardiopulmonary pathology Laboratory Tests Test 10/23/25 19:31 10/23/25 20:16 10/24/25 05:48 10/24/25 07:30 Glucometer 190 mg/dl 211 mg/dl 131 mg/dl White Blood Count 5.2 X10'3 Red Blood Count 3.78 X10'6 Hemoglobin 11.7 g/dl Hematocrit 34.7 % Mean Corpuscular Volume 91.7 FL Mean Corpuscular Hemoglobin 30.9 PG Mean Corpuscular Hemoglobin Concent 33.7 g/dL Red Cell Distribution Width 13.8 % Platelet Count 209 X10'3 Mean Platelet Volume 8.4 FL Neutrophils (%) (Auto) 31.8 % Lymphocytes (%) (Auto) 51.3 % Monocytes (%) (Auto) 14.2 % Eosinophils (%) (Auto) 2.1 % Basophils (%) (Auto) 0.6 % Neutrophils # (Auto) 1.6 X10'3 Lymphocytes # (Auto) 2.7 X10'3 Monocytes # (Auto) 0.7 X10'3 Eosinophils # (Auto) 0.1 X10'3 Basophils # (Auto) 0.0 X10'3 CBC Comment Sodium Level 145 MMOL/L Potassium Level 3.5 MMOL/L Chloride Level 106 MMOL/L Carbon Dioxide Level 26.8 MMOL/L Anion Gap 12 Blood Urea Nitrogen 13 MG/DL Creatinine 0.58 MG/DL Estimated GFR/1.73 m2 > 90 ML/MIN BUN/Creatinine Ratio 22.4 Glucose Level 118 MG/DL Calcium Level 9.4 MG/DL Magnesium Level 1.4 MG/DL Total Bilirubin 0.5 MG/DL Aspartate Amino Transf (AST/SGOT) 14 U/L Alanine Aminotransferase (ALT/SGPT) 13 U/L Alkaline Phosphatase 62 IU/L Total Protein 7.4 G/DL Albumin 3.6 G/DL Globulin 3.8 G/DL Albumin/Globulin Ratio 0.9 Chemistry Comments Test 10/24/25 12:10 10/24/25 17:06 10/24/25 21:28 10/25/25 05:54 Glucometer 186 mg/dl 142 mg/dl 218 mg/dl White Blood Count 4.7 X10'3 Red Blood Count 3.95 X10'6 Hemoglobin 12.4 g/dl Hematocrit 36.0 % Mean Corpuscular Volume 91.2 FL Mean Corpuscular Hemoglobin 31.4 PG Mean Corpuscular Hemoglobin Concent 34.4 g/dL Red Cell Distribution Width 13.5 % Platelet Count 209 X10'3 Mean Platelet Volume 8.3 FL Neutrophils (%) (Auto) 36.6 % Lymphocytes (%) (Auto) 45.2 % Monocytes (%) (Auto) 15.0 % Eosinophils (%) (Auto) 2.5 % Basophils (%) (Auto) 0.7 % Neutrophils # (Auto) 1.7 X10'3 Lymphocytes # (Auto) 2.1 X10'3 Monocytes # (Auto) 0.7 X10'3 Eosinophils # (Auto) 0.1 X10'3 Basophils # (Auto) 0.0 X10'3 CBC Comment Sodium Level 144 MMOL/L Potassium Level 3.8 MMOL/L Chloride Level 107 MMOL/L Carbon Dioxide Level 28.0 MMOL/L Anion Gap 9 Blood Urea Nitrogen 9 MG/DL Creatinine 0.55 MG/DL Estimated GFR/1.73 m2 > 90 ML/MIN BUN/Creatinine Ratio 16.4 Glucose Level 127 MG/DL Calcium Level 9.3 MG/DL Magnesium Level 2.0 MG/DL Total Bilirubin 0.6 MG/DL Aspartate Amino Transf (AST/SGOT) 15 U/L Alanine Aminotransferase (ALT/SGPT) 12 U/L Alkaline Phosphatase 60 IU/L Total Protein 7.4 G/DL Albumin 3.6 G/DL Globulin 3.8 G/DL Albumin/Globulin Ratio 0.9 Chemistry Comments Test 10/25/25 12:08 Glucometer 128 mg/dl Discharge physical exam: Vital Signs Date Time Temp Pulse Resp B/P (MAP) Pulse Ox O2 Delivery O2 Flow Rate FiO2 10/25/25 11:00 97.2 64 14 138/81 (100) 98 Room Air 10/25/25 06:00 0.0 General: awake, alert oriented to place, time, and person HEENT: No pallor present, no icterus, moist mucous membranes Neck: No masses and tenderness Resp: Unlabored. Lungs clear to auscultation bilaterally. Chest: Normal expansion Cardiovascular: Regular Rate and rhythm, normal S1 and S2 without murmur, rub or gallop Abdomen: Soft and nontender, no organomegaly, no guarding and rigidity, bowel sounds present Neuro: No focal weakness in the upper and lower limb muscles, power of the muscles 5/5 bilateral upper and lower extremities, normal reflexes bilaterally. Cranial nerves intact Extremities: No cyanosis,clubbing or edema Skin: Warm and Dry. No lesions Psych: Normal affect Disposition: Patient will be discharged home today with the following recommendations: Follow up with Dr. Iglesias at his office within the next 1-2 weeks. Follow up with PCP within 1-2 weeks. Continue eliquis, rosuvastatin and metoprolol. In case of worsening symptoms return to the ER immediately. *Problems/Diagnosis: (1) Stable angina Status: Acute (2) Chest pain Status: Acute Total Time Spent on D/C: > 30 Minutes Date of Service: Oct 25, 2025 Billing Provider: DARIEN ROWELL MD Common Visit Codes: 79946-XXZ/OBS DISCH DAY >30min SUMMERS CAMPBELLCHELSEYFlorencio CORRALES Oct 25, 2025 18:24 DARIEN ROWELL MD Oct 26, 2025 14:01
--- NOTE | 2025-10-26 04:23 | HISTORY AND PHYSICAL ---
ADMIT DATE: 10/23/2025 DICTATING PHYSICIAN: NIYAH Iglesias MD IDENTIFICATION: A 80-year-old female present for evaluation of chest pain. HISTORY OF PRESENT ILLNESS: The patient is a 80-year-old postmenopausal female normally followed in my office. She has history of COPD, diabetes, hypertension, hyperlipidemia, CAD, and history of chronic atrial fibrillation status post PPM. Her last evaluation in the office was on 03/17/2025. She presented to the Emergency Department at [facility] on 10/23/2025 with complaints of chest pain and palpitation. The patient states that she was having recurrent episodes of these palpitations and chest pain for the last 3 days, some with exertion, some at rest. She describes her chest pain as external, constricting in nature and also associated with increasing the heart rate. Generally, the patient ambulates around the house, reports dyspnea ongoing uphill and NYHA dyspnea class 2 to 3. Her history of atrial fibrillation dates back to 2014 and then the patient has been on rate control and anticoagulation. The patient did develop symptomatic bradycardia and subsequently underwent Micra leadless pacemaker implantation by Dr. NIYAH Iglesias at [facility] on 09/04/2023 and her last pacemaker checkup done in the office on 10/19/2025 revealed that she has V-paced at 70. There were no atrial fibrillation with RVR. Device was working optimally. The patient's history of coronary artery disease dates back to 03/20/2022 and at that time LAD 30%, OM1 50% to 70%, less than 2-mm diameter of nonobstructive disease in the right coronary artery. She was recommended medical therapy. She had a myocardial perfusion in 2023, which was negative for ischemia. Generally, the patient ambulates around the house, reportedly while going uphill, NYHA dyspnea class 2 to 3. The patient also has history of CVA diagnosed in 08/2015, was not anticoagulation at that time and then she was hospitalized and discharged home on Xarelto and Crestor. She also claims that she has a diagnosis of TIA and hospitalized in 09/06/2020 with confusion and incoherence speech and subtle left facial droop. She had a neurology consult by Dr. Cervantes, recommended Xarelto be switched to Eliquis. MRI showed small subacute to chronic infarction of left frontal operculum. CT angiogram showed less than Moderate carotid artery narrowing. PAST MEDICAL HISTORY: 1. Diabetes. 2. Hypertension. 3. Hyperlipidemia. 4. CVA. 5. Seizures. 7. Sick sinus syndrome status post micra pacemaker implantation 8. Chronic AFib. 9. COPD with chronic history of smoking from age 17 to 76. MEDICATIONS: Aspirin 81 mg p.o. daily, enalapril 5 mg p.o. b.i.d., metoprolol 50 mg p.o. daily, Crestor 10 mg p.o. daily, metformin 500 mg p.o. b.i.d., omeprazole, vitamin D, divalproex, and Cetirizine. PAST SURGICAL HISTORY: Foot surgery in 2008, partial hysterectomy in 1984, Micra pacemaker in 2023. FAMILY HISTORY: Father at age 31, mother at age 73. SOCIAL HISTORY: The patient is , lives with her . 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 REVIEW OF SYSTEMS: HEENT: Wears reading glasses. No hearing impairment. RESPIRATORY: Exertional shortness of breath. MUSCULOSKELETAL: Arthritis. CENTRAL NERVOUS SYSTEM: No stroke, TIA or seizure. PSYCHIATRIC: No anxiety or depression. SKIN: None. ENDOCRINE: None. PHYSICAL EXAMINATION: GENERAL: The patient is conscious, alert, oriented, comfortable at rest. Sister at bedside. VITAL SIGNS: Pulse 80, irregularly regular. Blood pressure 120/70. NECK: No JVD. Carotids are equally well felt. CARDIAC: Irregularly irregular rate. S1 and S2 normal. No S3, S4 or murmurs. LUNGS: Clear to auscultation bilaterally. ABDOMEN: Soft, nontender and nondistended. Bowel sounds present. EXTREMITIES: No edema, cyanosis, or clubbing. CENTRAL NERVOUS SYSTEM: No lateralizing signs. LABORATORY AND DIAGNOSTIC DATA: EKG shows AFib with intermittent V-pacing. Labs included CBC; WBC 6.8, hemoglobin 12.7, hematocrit 38.4, platelet count 217. Sodium 141, potassium 4.1, chloride 107, carbon dioxide 23, BUN 13, creatinine 0.63. ASSESSMENT AND PLAN: 1. A 80-year-old female with a history of chest pain and palpitation, admitted to hospital. Troponin is negative. EKG, AFib with intermittent backup pacing. Options of continued medical therapy versus further evaluation option discussed with the patient. The patient agrees. We will arrange for the same. 2. History of coronary artery disease, nonobstructive disease . Continue medical therapy. 3. Chronic atrial fibrillation status post myocardial infarction, pacemaker implantation. Continue beta blockers. 4. Diabetes, hypertension, and hyperlipidemia. Extensively counseled on coronary risk factor modification to keep LDL less than 55 mg%, systolic blood pressure less than 130 mmHg, hemoglobin less than 7%. 5. Status post PTM. Recommended 6-month checkup. 6. History of cerebrovascular accident/seizure. Continue antiarrhythmics, on antiepileptic agent. 7. Nonobstructive carotid disease. Recommend aspirin, statins and anticoagulation. Other comorbidities include diverticulosis, allergic rhinitis, urinary incontinence, UTI, and cataract. NIYAH Iglesias MD TID: [id number] RECEIPT: [id number] GUIDO/TICO cc: MTDD
[2025-10-26] MEDS ORDERED: aspirin 81mg, enteric-coated 1 TAB TABLET.DR PO SCH (08:00)
[2025-10-26] MEDS ORDERED: ASPI-1265 PO (10:45)
== END 2025-10-25 15:30 | disposition home or self-care (01) | DRG 303 ==
LOC: ER 12:21 → ED HOLD 15:41 → PCU 3S 17:32
PROVIDERS: ADMIT Family Medicine; ATTEND Family Medicine
PROC: 4A02XM4 Measurement of Cardiac Total Activity, External Approach (ICD-10-PCS; principal; 2025-10-25)
PROC: 3E033HZ Introduction of Radioactive Substance into Peripheral Vein, Percutaneous Approach (ICD-10-PCS; 2025-10-25)
DX: I25.118 Atherosclerotic heart disease of native coronary artery with other forms of angina pectoris (principal); I11.0 Hypertensive heart disease with heart failure; I48.20 Chronic atrial fibrillation, unspecified; E11.9 Type 2 diabetes mellitus without complications; E78.00 Pure hypercholesterolemia, unspecified; G40.909 Epilepsy, unspecified, not intractable, without status epilepticus; Z79.01 Long term (current) use of anticoagulants; I08.2 Rheumatic disorders of both aortic and tricuspid valves; J44.89 Other specified chronic obstructive pulmonary disease; K21.9 Gastro-esophageal reflux disease without esophagitis; Z86.73 Personal history of transient ischemic attack (TIA), and cerebral infarction without residual deficits; Z80.49 Family history of malignant neoplasm of other genital organs; Z95.0 Presence of cardiac pacemaker; Z63.4 Disappearance and death of family member; Z87.891 Personal history of nicotine dependence; Z79.4 Long term (current) use of insulin; Z90.711 Acquired absence of uterus with remaining cervical stump
CPT/HCPCS: 36415; 71045; 78452; 80048; 80053; 82948; 83036; 83735; 83880; 84100; 84443; 84484; 85025; 85610; 85730; 87081; 93005; 93017; 93306; 99285; A9500; G0378; J1815; J2785; J7030